=== PATIENT | male | born 1990 | race Caucasian/White ===

== ENCOUNTER 2016-05-14 | Emergency (ER) | payer OTHER ==
--- NOTE | 2016-05-14 16:23 | ED ---
ENT HPI - General Chief complaint: Dental/Oral Stated complaint: Dental Time Seen by Provider: 05/14/16 16:12 Source: patient, RN notes reviewed Mode of arrival: ambulatory Limitations: no limitations - History of Present Illness Initial comments: [age] male presents emergency Department chief complaint of right-sided dental pain. Patient states he's had about a week or so. Patient states anyincreased swelling over last night so he thought that he should be seen. Patient denies any fever chills. Patient has no significant drainage from the area. Patient denies any cough cold runny nose. Patient states he does not normally see a dentist. Patient states that he was concerned due to his symptoms without that he should be seen.Patient denies any recent fever, chills, shortness of breath, chest pain, back pain, abdominal pain, nausea vomiting, numbness or tingling, dysuria or hematuria, constipation or diarrhea, headaches or visual changes, or any other current symptoms. - Related Data Previous Rx's Medication Instructions Recorded Ibuprofen [Motrin] 600 mg PO Q6HR PRN #20 tab 05/14/16 Penicillin V Potassium [Pen Vee K] 500 mg PO TID #40 tab 05/14/16 Allergies Allergy/AdvReac Type Severity Reaction Status Date / Time No Known Allergies Allergy Verified 05/14/16 16:09 Review of Systems ROS Statement: Those systems with pertinent positive or pertinent negative responses have been documented in the HPI. ROS Other: All systems not noted in ROS Statement are negative. Past Medical History Past Medical History: No Reported History Additional Past Medical History / Comment(s): glaucoma History of Any Multi-Drug Resistant Organisms: None Reported Past Surgical History: Orthopedic Surgery Past Psychological History: No Psychological Hx Reported Smoking Status: Current every day smoker Past Alcohol Use History: Occasional Past Drug Use History: Marijuana General Exam Limitations: no limitations General appearance: alert, in no apparent distress Eye exam: Present: normal appearance, PERRL, EOMI. Absent: scleral icterus, conjunctival injection, periorbital swelling Expanded Mouth exam: Present: normal external inspection Teeth exam: Present: dental caries (Diffuse), dental tenderness # (30), gingival enlargement (With draining abscess above tooth #3) Throat exam: normal inspection, tonsillar erythema Neck exam: Present: normal inspection. Absent: tenderness, meningismus, lymphadenopathy Respiratory exam: Present: normal lung sounds bilaterally. Absent: respiratory distress, wheezes, rales, rhonchi, stridor Cardiovascular Exam: Present: regular rate, normal rhythm, normal heart sounds. Absent: systolic murmur, diastolic murmur, rubs, gallop, clicks Neurological exam: Present: alert, oriented X3, CN II-XII intact. Absent: motor sensory deficit Psychiatric exam: Present: normal affect, normal mood Skin exam: Present: warm, dry, intact, normal color. Absent: rash Course Vital Signs 05/14/16 16:05 Temperature 98.2 F Pulse Rate 79 Respiratory 18 Rate Blood Pressure 116/79 O2 Sat by Pulse 97 Oximetry Medical Decision Making - Medical Decision Making 26-year-old male presents emergency department with a chief complaint of what appears to be a dental abscess. This time it is actively draining. We discussed with certain pain medication and antibiotics. We discussed return parameters and follow-up. We discussed the importance to see the dentist. Patient stated he understood all questions have been answered. Patient will be discharged home. Disposition Clinical Impression: Dental abscess Disposition: HOME SELF-CARE Condition: Stable Instructions: Dental Abscess (ED) Additional Instructions: Please use medication as discussed. Please follow up with family doctor if symptoms have not improved over the next two days. Please return to the emergency room if your symptoms increase or worsen or for any other concerns. [facility] [id number] [place] [address] [phone] (existing clients only) For new clients: [phone] 1st consult: $50 (includes Xrays) Usually 30% less then private dentist for visits after. [employer] Have to pay $50 for Xrays anmd rest is covered. [phone] Prescriptions: Ibuprofen [Motrin] 600 mg PO Q6HR PRN #20 tab PRN Reason: Pain Penicillin V Potassium [Pen Vee K] 500 mg PO TID #40 tab Referrals: None,Stated [Primary Care Provider] - 1-2 days Derrick Jesus MD [STAFF PHYSICIAN] - 1-2 days Time of Disposition: 16:22
== END 2016-05-14 16:29 | disposition home or self-care (01) ==
CPT/HCPCS: 99282

== ENCOUNTER 2017-09-30 17:09 | Emergency (ER) | payer OTHER ==
[2017-09-30 17:43] VITALS: BP 128/72; PULSE 87; RESP 16; TEMP 98.4
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
[2017-09-30 18:11] LABS: Glucose,Whole Blood 121 mg/dL (75-99)
[2017-09-30 18:24] LABS: Basophils % (A) 0 %; Eosinophils # (A) 0.2 k/uL (0-0.7); Eosinophils % (A) 3 %; HCT 40.3 % (39.0-53.0); HGB 13.7 gm/dL (13.0-17.5); Lymphocytes # (A) 2.4 k/uL (1.0-4.8); Lymphocytes % (A) 30 %; MCH 27.4 pg (25.0-35.0); MCV 80.7 fL (80.0-100.0); Mean Platelet Volume 6.7; Monocytes # (A) 0.4 k/uL (0-1.0); Monocytes % (A) 6 %; Neutrophils # (A) 4.6 k/uL (1.3-7.7); Neutrophils % (A) 58 %; Platelet Count 226 k/uL (150-450); RBC 4.99 m/uL (4.30-5.90); RDW 13.6 % (11.5-15.5); WBC 7.9 k/uL (3.8-10.6)
[2017-09-30 18:32] LABS: INR 1.1 (<1.2); Prothrombin Time 10.5 sec (9.0-12.0)
[2017-09-30 18:37] LABS: ALT 49 U/L (21-72); AST 25 U/L (17-59); Albumin 4.3 g/dL (3.5-5.0); Alcohol <10 mg/dL; Alkaline Phosphatase 50 U/L (38-126); Amylase 40 U/L (30-110); Anion Gap 14 mmol/L; Blood Urea Nitrogen 14 mg/dL (9-20); Calcium 8.9 mg/dL (8.4-10.2); Carbon Dioxide 26 mmol/L (22-30); Chloride 103 mmol/L (98-107); Glucose 124 mg/dL (74-99); Lipase 10 U/L (23-300); Potassium 3.4 mmol/L (3.5-5.1); Sodium 143 mmol/L (137-145); Total Bilirubin 0.8 mg/dL (0.2-1.3); Total Protein 6.5 g/dL (6.3-8.2)
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
[2017-09-30 18:50] LABS: Creatine Kinase 86 U/L (55-170)
[2017-09-30 19:04] LABS: Creatine Kinase MB 0.7 ng/mL (0.0-2.4); Troponin I <0.012 ng/mL (0.000-0.034)
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
== END 2017-09-30 19:47 | disposition home or self-care (01) ==
LOC: EC 17:09
DX: S46.912A Strain of unspecified muscle, fascia and tendon at shoulder and upper arm level, left arm, initial encounter (principal); S60.311A Abrasion of right thumb, initial encounter; S60.415A Abrasion of left ring finger, initial encounter; S50.312A Abrasion of left elbow, initial encounter; S70.212A Abrasion, left hip, initial encounter; S80.812A Abrasion, left lower leg, initial encounter; R51 Headache; M54.2 Cervicalgia; F17.200 Nicotine dependence, unspecified, uncomplicated; V28.4XXA Motorcycle driver injured in noncollision transport accident in traffic accident, initial encounter; Y92.410 Unspecified street and highway as the place of occurrence of the external cause
CPT/HCPCS: 36415; 70450; 71045; 72125; 72170; 80053; 80320; 82150; 82550; 82553; 83605; 83690; 84484; 85025; 85610; 85730; 86850; 86900; 86901; 93005; 99284

== ENCOUNTER 2020-01-23 19:23 | Emergency (ER) | payer OTHER ==
[2020-01-23 19:44] VITALS: BP 127/86; PULSE 89; RESP 18; TEMP 98
--- NOTE | 2020-01-23 20:34 | XR ---
EXAMINATION TYPE: XR KUB DATE OF EXAM: 01/23/2020 COMPARISON: NONE HISTORY: Nausea and vomiting TECHNIQUE: 2 views upright FINDINGS: There is no sign of intestinal obstruction or pneumoperitoneum. Fecal pattern is normal. Th ere is no evidence of a mass. Lung bases are clear. There are no pathologic calcifications over the k idneys. IMPRESSION: Nonacute abdomen.
--- NOTE | 2020-01-23 20:36 | XR ---
EXAMINATION TYPE: XR chest 2V DATE OF EXAM: 01/23/2020 COMPARISON: 09/30/2017 HISTORY: Cough TECHNIQUE: 2 views FINDINGS: Heart and mediastinum are normal. Lungs are clear. Diaphragm is normal. Bony thorax appears normal. IMPRESSION: Multiple chest.
[2020-01-23 20:58] LABS: Basophils # (A) 0.1 k/uL (0-0.2); Basophils % (A) 1 %; Eosinophils # (A) 0.2 k/uL (0-0.7); Eosinophils % (A) 2 %; HCT 46.4 % (39.0-53.0); HGB 14.6 gm/dL (13.0-17.5); Lymphocytes # (A) 2.8 k/uL (1.0-4.8); Lymphocytes % (A) 30 %; MCH 26.3 pg (25.0-35.0); MCHC 31.5 g/dL (31.0-37.0); MCV 83.3 fL (80.0-100.0); Mean Platelet Volume 6.4; Monocytes # (A) 0.5 k/uL (0-1.0); Monocytes % (A) 5 %; Neutrophils # (A) 5.6 k/uL (1.3-7.7); Neutrophils % (A) 61 %; Platelet Count 230 k/uL (150-450); RBC 5.57 m/uL (4.30-5.90); RDW 13.2 % (11.5-15.5); WBC 9.3 k/uL (3.8-10.6)
[2020-01-23 21:06] LABS: ALT 87 U/L (4-49); AST 44 U/L (17-59); African American GFR (CKD) >90 (>60 ml/min/1.73 sqM); Albumin 4.6 g/dL (3.5-5.0); Alkaline Phosphatase 58 U/L (38-126); Anion Gap 5 mmol/L; Blood Urea Nitrogen 12 mg/dL (9-20); Calcium 9.4 mg/dL (8.4-10.2); Carbon Dioxide 31 mmol/L (22-30); Chloride 102 mmol/L (98-107); Glucose 67 mg/dL (74-99); Magnesium 2.3 mg/dL (1.6-2.3); Non-African American GFR(CKD) >90 (>60 ml/min/1.73 sqM); Potassium 3.7 mmol/L (3.5-5.1); Sodium 138 mmol/L (137-145); Total Bilirubin 0.7 mg/dL (0.2-1.3); Total Protein 7.4 g/dL (6.3-8.2)
--- NOTE | 2020-01-23 21:26 | ED ---
General Adult HPI - General Chief complaint: Recheck/Abnormal Lab/Rx Stated complaint: Nausea,SOB Time Seen by Provider: 01/23/20 19:52 Source: patient, RN notes reviewed, old records reviewed Mode of arrival: ambulatory Limitations: no limitations - History of Present Illness Initial comments: 29-year-old male patient presents ED for multiple complaints. Patient complains of having rhinitis cough congestion nausea diarrhea waxing and waning headaches. No headache at this time. No red flag symptoms. Patient has a history of glaucoma. Systemic: Pt denies fatigue, fever/chills, rash. Pt denies weakness, night sweats, weight loss. Neuro: Pt denies visual disturbances, syncope or pre-syncope. HEENT: Pt denies ocular discharge or irritation, otalgia, rhinorrhea, pharyngitis or notable lymphadenopathy. Cardiopulmonary: Pt denies chest pain, SOB, heart palpitations, dyspnea on exertion. Abdominal/GI: Pt denies abdominal pain, n/v/d. : Pt denies dysuria, burning w/ urination, frequency/urgency. Denies new onset urinary or bowel incontinence. MSK: Pt denies myalgia, loss of strength or function in extremities. Neuro: Pt denies new onset weakness, paresthesias. - Related Data Previous Rx's Medication Instructions Recorded Ibuprofen 800 mg PO Q6HR PRN #20 tablet 09/30/17 Allergies Allergy/AdvReac Type Severity Reaction Status Date / Time No Known Allergies Allergy Verified 01/23/20 19:44 Review of Systems ROS Statement: Those systems with pertinent positive or pertinent negative responses have been documented in the HPI. ROS Other: All systems not noted in ROS Statement are negative. Past Medical History Past Medical History: No Reported History Additional Past Medical History / Comment(s): glaucoma History of Any Multi-Drug Resistant Organisms: None Reported Past Surgical History: Orthopedic Surgery Past Psychological History: No Psychological Hx Reported Smoking Status: Current every day smoker Past Alcohol Use History: Occasional Past Drug Use History: Marijuana General Exam - General Exam Comments Initial Comments: Constitutional: NAD, AOX3, Pt has pleasant affect. HEENT: NC/AT, trachea midline, neck supple, no lymphadenopathy. External ears appear normal, without discharge. Mucous membranes moist. Eyes PERRLA, EOM intact. There is no scleral icterus. No pallor noted. Intraocular pressure average of 18 bilaterally. Cardiopulmonary: RRR, no murmurs, rubs or gallops, no JVD noted. Lungs CTAB in anterior and posterior sawant. No peripheral edema. Abdominal exam: Abdomen soft and non-distended. Abdomen non-tender to palpation in all 4 quadrants. Bowel sounds active in LLQ. No hepatosplenomegaly. No ecchymosis Neuro: CN II-XII intact. No nuchal rigidity. No raccon eyes, no guerra sign, no hemotympanum. No cervical spinal tenderness. MSK: No posterior calf tenderness bilaterally. Posterior tibialis and radial pulse +2 bilaterally. Sensation intact in upper and lower extremities. Full active ROM in upper and lower extremities, 5/5 stregnth. Limitations: no limitations Course Vital Signs 01/23/20 19:42 Temperature 98.0 F Pulse Rate 89 Respiratory 18 Rate Blood Pressure 127/86 O2 Sat by Pulse 100 Oximetry Medical Decision Making - Medical Decision Making 29-year-old male patient to ED for multiple complaints. Physical exam did not display acute pathology. EKG is nonischemic. Chest x-ray negative for any pneumonia or any other acute process. Chest x-rays displayed nonacute abdomen. She was tested for Covid. CBC was non-impressive. Patient declined CT scan. After that the patient requested immediate discharge. Discussed with Patient that I do not have all tests back and explained the risks in which case and including . He verbalized understanding wishes to go says he'll follow-up with his primary care provider and return if any worsening symptoms. Case discussed with Dr. Herrera. - Lab Data Result diagrams: 01/23/20 20:48 01/23/20 20:48 Lab Results 01/23/20 01/23/20 Range/Units 20:48 20:48 WBC 9.3 (3.8-10.6) k/uL RBC 5.57 (4.30-5.90) m/uL Hgb 14.6 (13.0-17.5) gm/dL Hct 46.4 (39.0-53.0) % MCV 83.3 (80.0-100.0) fL MCH 26.3 (25.0-35.0) pg MCHC 31.5 (31.0-37.0) g/dL RDW 13.2 (11.5-15.5) % Plt Count 230 (150-450) k/uL Neutrophils % 61 % Lymphocytes % 30 % Monocytes % 5 % Eosinophils % 2 % Basophils % 1 % Neutrophils # 5.6 (1.3-7.7) k/uL Lymphocytes # 2.8 (1.0-4.8) k/uL Monocytes # 0.5 (0-1.0) k/uL Eosinophils # 0.2 (0-0.7) k/uL Basophils # 0.1 (0-0.2) k/uL Sodium 138 (137-145) mmol/L Potassium 3.7 (3.5-5.1) mmol/L Chloride 102 (98-107) mmol/L Carbon Dioxide 31 H (22-30) mmol/L Anion Gap 5 mmol/L BUN 12 (9-20) mg/dL Creatinine 0.82 (0.66-1.25) mg/dL Est GFR (CKD-EPI)AfAm >90 (>60 ml/min/1.73 sqM) Est GFR (CKD-EPI)NonAf >90 (>60 ml/min/1.73 sqM) Glucose 67 L (74-99) mg/dL Calcium 9.4 (8.4-10.2) mg/dL Magnesium 2.3 (1.6-2.3) mg/dL Total Bilirubin 0.7 (0.2-1.3) mg/dL AST 44 (17-59) U/L ALT 87 H (4-49) U/L Alkaline Phosphatase 58 (38-126) U/L Total Protein 7.4 (6.3-8.2) g/dL Albumin 4.6 (3.5-5.0) g/dL - EKG Data -: EKG Interpreted by Me (and Dr. Herrera ) EKG Comments: ventricular rate 86,. Full 136, QRS 80, QT/QTC 350/418. Normal sinus rhythm, normal EKG, no concern for acute ischemia. Disposition Clinical Impression: Cough Disposition: Left Against Medical Advice Condition: Undetermined Is patient prescribed a controlled substance at d/c from ED?: No Referrals: None,Stated [Primary Care Provider] - 1-2 days
== END 2020-01-23 21:15 | disposition left against medical advice (07) ==
LOC: EC 19:23
DX: R05 Cough (principal); J31.0 Chronic rhinitis; R11.0 Nausea; R19.7 Diarrhea, unspecified; R51 Headache; R09.89 Other specified symptoms and signs involving the circulatory and respiratory systems; H40.9 Unspecified glaucoma; F17.200 Nicotine dependence, unspecified, uncomplicated; Z20.828 Contact with and (suspected) exposure to other viral communicable diseases
CPT/HCPCS: 36415; 93005; 80053; 83735; 85025; 71046; 74018; 99285; U0003

== ENCOUNTER → 2020-01-31 | Outpatient (CLI) | payer OTHER ==
[2020-01-31 15:35] LABS: Amorphous Sediment,Urine Rare /hpf; Appearance,Urine Cloudy (Clear); Bilirubin,Urine Negative (Negative); Blood,Urine Negative (Negative); Color,Urine Yellow; Glucose,Urine (UA) Negative (Negative); Ketones,Urine Negative (Negative); Leukocyte Esterase,Urine Negative (Negative); Mucus,Urine Rare /hpf; Nitrite,Urine Negative (Negative); PH, Urine 7.5 (5.0-8.0); Protein,Urine Trace (Negative); Specific Gravity,Urine 1.021 (1.001-1.035); Urobilinogen,Urine <2.0 mg/dL (<2.0); WBC,Urine 1 /hpf (0-5)
[2020-02-01 05:04] LABS: Hepatitis B Surface Antigen Non-Reactive (Non-Reactive); Hepatitis C IgG Antibody Reactive (Non-Reactive)
[2020-02-01 07:19] LABS: HIV 2 AB Non-Reactive (Non-Reactive); HIV AB P24 Non-Reactive (Non-Reactive); HIV P24 AG Non-Reactive (Non-Reactive)
[2020-02-01 15:33] LABS: C. trachomatis,PCR Negative (Neg,Equiv); Chlamydia trachomatis Source Urine; N. gonorrhoeae,PCR Negative (Neg,Equiv); Neisseria Source Urine
== END | disposition home or self-care (01) ==
LOC: LABWHC1 14:24
PROVIDERS: ATTEND Family Medicine
DX: Z11.3 Encounter for screening for infections with a predominantly sexual mode of transmission (principal); R42 Dizziness and giddiness
CPT/HCPCS: 36415; 81001; 84443; 86780; 86803; 87340; 87390; 87491; 87591

== ENCOUNTER 2021-01-31 13:59 | Emergency (ER) | payer OTHER ==
[2021-01-31 14:21] VITALS: BP 111/64; PULSE 106; RESP 18; TEMP 97.6
[2021-01-31] MEDS ORDERED: SULFAMETHOX-TMP 800-160MG 1 EACH TAB PO STA (14:51)
--- NOTE | 2021-01-31 15:31 | ED ---
Recheck HPI - General Chief Complaint: Recheck/Abnormal Lab/Rx Stated Complaint: Assisted clearance Time Seen by Provider: 01/31/21 14:32 Source: patient, police, RN notes reviewed Mode of arrival: wheelchair Limitations: no limitations - History of Present Illness Initial Comments: Patient is a 30-year-old male presenting to the emergency department in police custody for retirement clearance. According to police officers, patient was arrested and then quickly started coming up with multiple complaints and brought him to the ER for evaluation. Patient is complaining of feeling anxious, he "thinks he had a heart attack and stroke last week." He stating this because he has been under a lot of stress and felt a lot of anxiety. He denies any chest pain or shortness of breath today, no fevers or chills. Patient recently was bitten by a dog about 3-4 days ago and his right ear. He did not seek treatment for this. He states he believes his tetanus vaccine is up-to-date, he is refusing an updated one today. Having increasing pain in his right ear ever since then. He denies any lightheadedness or dizziness. He is complaining of feeling really dehydrated, he states he has not drank any water today. Patient denies any other further complaints. Denies any chest pain or shortness of breath, no fevers or chills, no abdominal pain. He denies any suicidal or homicidal thoughts. Has no further complaints. Upon arrival to the ER his vitals are stable. - Related Data Previous Rx's Medication Instructions Recorded Ibuprofen 800 mg PO Q6HR PRN #20 tablet 09/30/17 Sulfamethox-Tmp 800-160Mg [Bactrim 1 each PO Q12HR #20 tab 01/31/21 Ds] Allergies Allergy/AdvReac Type Severity Reaction Status Date / Time No Known Allergies Allergy Verified 01/31/21 14:16 Review of Systems ROS Statement: Those systems with pertinent positive or pertinent negative responses have been documented in the HPI. ROS Other: All systems not noted in ROS Statement are negative. Past Medical History Past Medical History: No Reported History Additional Past Medical History / Comment(s): glaucoma History of Any Multi-Drug Resistant Organisms: None Reported Past Surgical History: Orthopedic Surgery Past Psychological History: No Psychological Hx Reported Smoking Status: Current every day smoker Past Alcohol Use History: Occasional Past Drug Use History: Marijuana General Exam - General Exam Comments Initial Comments: GENERAL: Patient is nontoxic and in no acute distress, appears anxious HEAD: Atraumatic, normocephalic. EYES: Pupils equal round and reactive to light, extraocular movements intact, sclera anicteric, conjunctiva are normal. Eyelids were unremarkable. ENT: Nares patent, oropharynx clear without exudates. Moist mucous membranes. NECK: Normal range of motion, supple without lymphadenopathy or JVD. LUNGS: Unlabored respirations. Breath sounds clear to auscultation bilaterally and equal. No wheezes rales or rhonchi. HEART: Regular rate and rhythm without murmurs, rubs or gallops. ABDOMEN: Soft, nontender, normoactive bowel sounds. No guarding, no rebound. No masses appreciated. : Deferred MUSCULOSKELETAL: Normal extremities with adequate strength and normal range of motion, no pitting or edema. No clubbing or cyanosis. NEUROLOGICAL: Patient is alert and oriented x 3. Motor and sensory are also intact. Cranial nerves II through XII grossly intact. Symmetrical smile. Normal speech, normal gait. PSYCH: Patient appears anxious. SKIN: Warm, Dry, normal turgor, no rashes or lesions noted. Limitations: no limitations Course Vital Signs 01/31/21 14:17 Temperature 97.6 F Pulse Rate 106 H Respiratory 18 Rate Blood Pressure 111/64 O2 Sat by Pulse 97 Oximetry Medical Decision Making - Medical Decision Making Patient is a 30-year-old male presenting in police custody for retirement clearance. According to officers, sent is a rusted him he started complaining of multiple complaints and they brought him in for evaluation. I did do an EKG, showing normal sinus rhythm, no signs of acute ST segment elevation. Patient was given water and I started treatment for a dog bite to his right ear with bactrim. He did not receive treatment for this ear and is refusing a tetanus shot today, he believes his tetanus is up-to-date. I cannot repair his ear secondary to how long the injury is been. I recommended continuing with antibiotics. He is stable for discharge. Patient will be discharged back to the police custody. Case discussed with Dr. Stapleton. - EKG Data EKG Comments: Normal sinus rhythm, rightward axis, no signs of acute ST segment elevation. Ventricular rate 78, DC interval 136, QT 378. Disposition Clinical Impression: Anxiety, Dog bite of right ear Disposition: HOME SELF-CARE Condition: Stable Instructions (If sedation given, give patient instructions): Cellulitis (ED) Additional Instructions: Please return to the Emergency Department if symptoms worsen or any other concerns. Please take antibiotics as prescribed. Prescriptions: Sulfamethox-Tmp 800-160Mg [Bactrim Ds] 1 each PO Q12HR #20 tab Is patient prescribed a controlled substance at d/c from ED?: No Referrals: None,Stated [Primary Care Provider] - 1-2 days Time of Disposition: 15:31
== END 2021-01-31 15:44 | disposition home or self-care (01) ==
LOC: EC 13:59
DX: S01.351A Open bite of right ear, initial encounter (principal); F41.9 Anxiety disorder, unspecified; F17.200 Nicotine dependence, unspecified, uncomplicated; F12.90 Cannabis use, unspecified, uncomplicated; W54.0XXA Bitten by dog, initial encounter
CPT/HCPCS: 93005; 99283

== ENCOUNTER 2022-05-10 13:15 | Emergency (ER) | payer OTHER ==
[2022-05-10] MEDS ORDERED: SODIUM CHLORIDE 0.9% 1,000 ML IV STA (13:34)
[2022-05-10] MEDS ORDERED: LORazepam 2 MG/ML INJ IV STA (13:36)
--- NOTE | 2022-05-10 13:38 | ED ---
General Adult HPI - General Chief complaint: Syncope Stated complaint: near syncope Time Seen by Provider: 05/10/22 13:18 Source: patient, EMS, RN notes reviewed Mode of arrival: EMS Limitations: no limitations - History of Present Illness Initial comments: Patient was a pleasant 32-year-old male presenting to the emergency department with concerns for shaking and near syncope. Patient has a previous history of syncope and a previous history of seizure once. Patient recently stopped using methamphetamine, 4 days ago. Patient felt worse today. Patient felt lightheaded and shaky and was concerned he would pass out. Patient did not pass out. Patient states he is starting to feel a little bit better now. Patient admits to not eating and drinking as much recently and does feel a little bit dehydrated. - Related Data Home Medications Medication Instructions Recorded Confirmed No Known Home Medications 05/10/22 05/10/22 Allergies Allergy/AdvReac Type Severity Reaction Status Date / Time No Known Allergies Allergy Verified 05/10/22 14:46 Review of Systems ROS Statement: Those systems with pertinent positive or pertinent negative responses have been documented in the HPI. ROS Other: All systems not noted in ROS Statement are negative. Constitutional: Denies: fever Eyes: Denies: eye pain ENT: Denies: ear pain Respiratory: Denies: cough Cardiovascular: Denies: chest pain Endocrine: Denies: fatigue Gastrointestinal: Reports: nausea Genitourinary: Denies: dysuria Musculoskeletal: Denies: back pain Skin: Denies: rash Neurological: Reports: paresthesias (Tingling of both his feet and hands). Denies: weakness Past Medical History Past Medical History: No Reported History Additional Past Medical History / Comment(s): glaucoma History of Any Multi-Drug Resistant Organisms: None Reported Past Surgical History: Orthopedic Surgery Past Psychological History: No Psychological Hx Reported Smoking Status: Current every day smoker Past Alcohol Use History: Occasional Past Drug Use History: Marijuana General Exam Limitations: no limitations General appearance: alert, in no apparent distress Head exam: Present: atraumatic, normocephalic Eye exam: Present: normal appearance, PERRL, EOMI ENT exam: Present: normal oropharynx, other (Poor dentition) Neck exam: Present: normal inspection. Absent: tenderness, meningismus Respiratory exam: Present: normal lung sounds bilaterally Cardiovascular Exam: Present: regular rate, normal rhythm, normal heart sounds Expanded Peripheral pulses: 2+: Radial (R), Radial (L), Posterior Tibialis (R), Posterior Tibialis (L) GI/Abdominal exam: Present: soft. Absent: tenderness Extremities exam: Present: normal inspection. Absent: pedal edema, calf tenderness Neurological exam: Present: alert, oriented X3, CN II-XII intact. Absent: motor sensory deficit Expanded Neurological exam: Present: protecting the airway Speech: Present: fluid speech Motor strength exam: RUE: 5, LUE: 5, RLE: 5, LLE: 5 Eye Response: (4) open spontaneously Motor Response: (6) obeys commands Verbal Response: (5) oriented Psychiatric exam: Present: normal affect, normal mood Skin exam: Present: normal color Course Vital Signs 05/10/22 13:43 Temperature 98.5 F Pulse Rate 70 Respiratory 18 Rate Blood Pressure 108/73 O2 Sat by Pulse 100 Oximetry EKG Findings - EKG Results: EKG: interpreted by ERMD, sinus rhythm, normal axis, normal QRS, normal ST/T Medical Decision Making - Medical Decision Making Patient reevaluated and feeling much better. Patient and family updated on results Was pt. sent in by a medical professional or institution (Dr. PA, METAL FINISHER, urgent care, hospital, or shelter...) When possible be specific @ -No Did you speak to anyone other than the patient for history (EMS, parent, family, police, friend...)? What history was obtained from this source @ -Additional history taken from EMS including the patient last used methamphetamine 4 days ago Did you review nursing and triage notes (agree or disagree)? Why? @ -I reviewed and agree with nursing and triage notes Were old charts reviewed (outside hosp., previous admission, EMS record, old EKG, old radiological studies, urgent care reports/EKG's, shelter records)? Report findings @ -No old charts were reviewed Differential Diagnosis (chest pain, altered mental status, abdominal pain women, abdominal pain men, vaginal bleeding, weakness, fever, dyspnea, syncope, headache, dizziness, GI bleed, back pain, seizure, CVA, palpatations, mental health)? @ -Differential Weakness: Hypoglycemia, shock, sepsis, hyponatremia, anemia, infection, GA, ETOH, adverse medicine reaction, overdose, stroke, this is not meant to be an all-inclusive list.Differential Syncope: Valvular disease, hypertrophic cardiomyopathy, pulmonary embolism, tamponade, tachycardia, bradycardia, GA, hypovolemia, hemorrhage, dissection, anemia, intracranial hemorrhage, seizure, hypoglycemia, carbon monoxide poisoning, this is not meant to be an all-inclusive list. EKG interpreted by me (3pts min.). @ -As above X-rays interpreted by me (1pt min.). @ -None done CT interpreted by me (1pt min.). @ -None done U/S interpreted by me (1pt. min.). @ -None done What testing was considered but not performed or refused? (CT, X-rays, U/S, labs)? Why? @ -None What meds were considered but not given or refused? Why? @ -None Did you discuss the management of the patient with other professionals (professionals i.e. , PA, METAL FINISHER, lab, RT, psych nurse, licensed clinical social worker, marketing programs specialist, teacher, registration officer, case checker)? Give summary @ -No Was smoking cessation discussed for >3mins.? @ -No Was critical care preformed (if so, how long)? @ -No Were there social determinants of health that impacted care today? How? (Homelessness, low income, unemployed, alcoholism, drug addiction, transportation, low edu. Level, literacy, decrease access to med. care, halfway, rehab)? @ -No Was there de-escalation of care discussed even if they declined (Discuss DNR or withdrawal of care, Hospice)? DNR status @ -No What co-morbidities impacted this encounter? (DM, HTN, Smoking, COPD, CAD, Cancer, CVA, ARF, Chemo, Hep., AIDS, mental health diagnosis, sleep apnea, morbid obesity)? @ -None Was patient admitted / discharged? Hospital course, mention meds given and route, prescriptions, significant lab abnormalities, going to OR and other pertinent info. @ -Discharged Undiagnosed new problem with uncertain prognosis? @ -No Drug Therapy requiring intensive monitoring for toxicity (Heparin, Nitro, I nsulin, Cardizem)? @ -No Were any procedures done? @ -No Diagnosis/symptom? @ -Near-syncope Acute, or Chronic, or Acute on Chronic? @ -Acute Uncomplicated (without systemic symptoms) or Complicated (systemic symptoms)? @ -default Side effects of treatment? @ -No Exacerbation, Progression, or Severe Exacerbation? @ -No Poses a threat to life or bodily function? How? (Chest pain, USA, [place], pneumonia, PE, COPD, DKA, ARF, appy, cholecystitis, CVA, Diverticulitis, Homicidal, Suicidal, threat to staff... and all critical care pts) @ -No - Lab Data Result diagrams: 05/10/22 13:30 05/10/22 13:30 Lab Results 05/10/22 05/10/22 05/10/22 Range/Units 13:30 13:30 13:30 WBC 8.9 (3.8-10.6) k/uL RBC 5.72 (4.30-5.90) m/uL Hgb 16.0 (13.0-17.5) gm/dL Hct 48.1 (39.0-53.0) % MCV 84.1 (80.0-100.0) fL MCH 28.0 (25.0-35.0) pg MCHC 33.3 (31.0-37.0) g/dL RDW 13.3 (11.5-15.5) % Plt Count 252 (150-450) k/uL MPV 7.3 Neutrophils % 67 % Lymphocytes % 23 % Monocytes % 5 % Eosinophils % 3 % Basophils % 1 % Neutrophils # 6.0 (1.3-7.7) k/uL Lymphocytes # 2.0 (1.0-4.8) k/uL Monocytes # 0.4 (0-1.0) k/uL Eosinophils # 0.2 (0-0.7) k/uL Basophils # 0.1 (0-0.2) k/uL Sodium 135 L (137-145) mmol/L Potassium 4.6 (3.5-5.1) mmol/L Chloride 103 (98-107) mmol/L Carbon Dioxide 23 (22-30) mmol/L Anion Gap 9 mmol/L BUN 13 (9-20) mg/dL Creatinine 0.83 (0.66-1.25) mg/dL Est GFR (CKD-EPI)AfAm >90 (>60 ml/min/1.73 sqM) Est GFR (CKD-EPI)NonAf >90 (>60 ml/min/1.73 sqM) Glucose 174 H (74-99) mg/dL Plasma Lactic Acid Kerwin 1.3 (0.7-2.0) mmol/L Calcium 8.3 L (8.4-10.2) mg/dL Magnesium 1.9 (1.6-2.3) mg/dL Total Bilirubin 0.8 (0.2-1.3) mg/dL AST 38 (17-59) U/L ALT 41 (4-49) U/L Alkaline Phosphatase 57 (38-126) U/L Total Protein 7.1 (6.3-8.2) g/dL Albumin 4.3 (3.5-5.0) g/dL Disposition Clinical Impression: Near syncope Disposition: HOME SELF-CARE Condition: Stable Instructions (If sedation given, give patient instructions): Near Syncope (ED) Additional Instructions: Please do follow-up with primary care physician in the next couple days for recheck. Return for weakness, passing out, confusion, worsening or changing symptoms or other concerns. Is patient prescribed a controlled substance at d/c from ED?: No Referrals: Roshan Choudhary MD [REFERRING] - 1-2 days Time of Disposition: 15:02
[2022-05-10 13:59] VITALS: PULSE 70; RESP 18; TEMP 98.5
[2022-05-10 14:07] LABS: Basophils # (A) 0.1 k/uL (0-0.2); Basophils % (A) 1 %; Eosinophils # (A) 0.2 k/uL (0-0.7); Eosinophils % (A) 3 %; HCT 48.1 % (39.0-53.0); Lymphocytes % (A) 23 %; MCHC 33.3 g/dL (31.0-37.0); MCV 84.1 fL (80.0-100.0); Mean Platelet Volume 7.3; Monocytes # (A) 0.4 k/uL (0-1.0); Monocytes % (A) 5 %; Neutrophils % (A) 67 %; Platelet Count 252 k/uL (150-450); RBC 5.72 m/uL (4.30-5.90); RDW 13.3 % (11.5-15.5); WBC 8.9 k/uL (3.8-10.6)
[2022-05-10 14:26] LABS: ALT 41 U/L (4-49); African American GFR (CKD) >90 (>60 ml/min/1.73 sqM); Albumin 4.3 g/dL (3.5-5.0); Anion Gap 9 mmol/L; Blood Urea Nitrogen 13 mg/dL (9-20); Calcium 8.3 mg/dL (8.4-10.2); Carbon Dioxide 23 mmol/L (22-30); Chloride 103 mmol/L (98-107); Glucose 174 mg/dL (74-99); Non-African American GFR(CKD) >90 (>60 ml/min/1.73 sqM); Sodium 135 mmol/L (137-145); Total Bilirubin 0.8 mg/dL (0.2-1.3); Total Protein 7.1 g/dL (6.3-8.2)
[2022-05-10 14:27] LABS: Potassium 4.6 mmol/L (3.5-5.1)
[2022-05-10 14:28] LABS: AST 38 U/L (17-59); Alkaline Phosphatase 57 U/L (38-126); Magnesium 1.9 mg/dL (1.6-2.3)
[2022-05-10 15:04] VITALS: BP 110/70
== END 2022-05-10 15:11 | disposition home or self-care (01) ==
LOC: EC 13:15
DX: R55 Syncope and collapse (principal); F17.200 Nicotine dependence, unspecified, uncomplicated; F12.90 Cannabis use, unspecified, uncomplicated
CPT/HCPCS: 36415; 93005; 80053; 83605; 83735; 85025; 99284; 96374; 96361; J2060

== ENCOUNTER 2022-10-18 22:52 | Inpatient (IN) | payer MEDICAID, OTHER ==
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
[2022-10-19 03:31] LABS: Amphetamine Screen,Urine Not Detected (NotDetected); Barbiturate Screen,Urine Not Detected (NotDetected); Benzodiazepines Screen,Urine Not Detected (NotDetected); Cocaine Screen,Urine Not Detected (NotDetected); Methadone Screen, Urine Not Detected (NotDetected); Opiate Screen,Urine Not Detected (NotDetected); Oxycodone Screen, Urine Not Detected (NotDetected); Phencyclidine Screen,Urine Not Detected (NotDetected); Tricyclic Antidepressant,Urine Not Detected (NotDetected); Urn Cannabinoid Scrn Detected (NotDetected)
[2022-10-19] MEDS ORDERED: diphenhydrAMINE 50 MG/ML 1 ML VIAL IM STA (04:20)
[2022-10-19] MEDS ORDERED: HALOPERIDOL LACTATE 5 MG/ML 1 ML VIAL IM STA (04:20)
[2022-10-19] MEDS ORDERED: LORazepam 2 MG/ML INJ IM STA (04:20)
[2022-10-19] MEDS ORDERED: MAG HYDROX/AL HYDROX/SIMETH 30 ML CUP PO PRN (06:40)
[2022-10-19] MEDS ORDERED: MAGNESIUM HYDROXIDE 2,400 MG/30 ML CUP PO PRN (06:40)
[2022-10-19] MEDS ORDERED: ACETAMINOPHEN TAB 325 MG TAB PO PRN (06:40)
[2022-10-19] MEDS ORDERED: LORazepam 1 MG TAB PO PRN (06:42)
[2022-10-19] MEDS ORDERED: LORazepam 2 MG/ML INJ IM PRN (06:42)
[2022-10-19] MEDS ORDERED: OLANZapine 10 MG VIAL IM PRN (06:44)
[2022-10-19] MEDS ORDERED: OLANZapine 5 MG TAB PO PRN (06:44)
[2022-10-19 07:26] LABS: Appearance,Urine Clear (Clear); Bilirubin,Urine Negative (Negative); Blood,Urine Negative (Negative); Color,Urine Light Yellow; Glucose,Urine (UA) Negative (Negative); Ketones,Urine Negative (Negative); Leukocyte Esterase,Urine Negative (Negative); Nitrite,Urine Negative (Negative); PH, Urine 6.5 (5.0-8.0); Protein,Urine Negative (Negative); Specific Gravity,Urine 1.004 (1.001-1.035); Urobilinogen,Urine <2.0 mg/dL (<2.0)
[2022-10-19] MEDS: NICOTINE 14MG/24HR PATCH TRANSDERM SCH (10:15)
[2022-10-19 11:37] LABS: Basophils % (A) 0 %; Eosinophils # (A) 0.1 k/uL (0-0.7); Eosinophils % (A) 1 %; HCT 47.9 % (39.0-53.0); HGB 15.5 gm/dL (13.0-17.5); Lymphocytes # (A) 1.8 k/uL (1.0-4.8); Lymphocytes % (A) 24 %; MCH 27.4 pg (25.0-35.0); MCHC 32.4 g/dL (31.0-37.0); MCV 84.7 fL (80.0-100.0); Mean Platelet Volume 6.8; Monocytes # (A) 0.4 k/uL (0-1.0); Monocytes % (A) 6 %; Neutrophils % (A) 67 %; Platelet Count 243 k/uL (150-450); RBC 5.65 m/uL (4.30-5.90); RDW 13.3 % (11.5-15.5); WBC 7.4 k/uL (3.8-10.6)
[2022-10-19 11:43] LABS: ALT 48 U/L (4-49); AST 35 U/L (17-59); African American GFR (CKD) >90 (>60 ml/min/1.73 sqM); Albumin 4.9 g/dL (3.5-5.0); Alkaline Phosphatase 58 U/L (38-126); Anion Gap 12 mmol/L; Bilirubin, Delta 0.2 mg/dL (0.0-0.2); Bilirubin,Unconjugated 0.5 mg/dL (0.0-1.1); Blood Urea Nitrogen 12 mg/dL (9-20); Calcium 9.6 mg/dL (8.4-10.2); Carbon Dioxide 27 mmol/L (22-30); Chloride 100 mmol/L (98-107); Glucose 88 mg/dL (74-99); Non-African American GFR(CKD) >90 (>60 ml/min/1.73 sqM); Potassium 3.8 mmol/L (3.5-5.1); Sodium 139 mmol/L (137-145); Total Bilirubin 0.7 mg/dL (0.2-1.3); Total Protein 8.2 g/dL (6.3-8.2)
[2022-10-19] MEDS: SERTRALINE 50 MG TAB PO SCH (12:08)
--- NOTE | 2022-10-19 13:48 | P.HP ---
Psychiatric H&P - . H&P Date: 10/19/22 History & Physical: Allergies Allergy/AdvReac Type Severity Reaction Status Date / Time No Known Allergies Allergy Verified 10/19/22 06:46 Vital Signs Temp 97.5 F L 10/19/22 08:56 Pulse 92 10/19/22 08:56 Resp 16 10/19/22 08:56 BP 134/82 10/19/22 08:56 Pulse Ox 98 10/19/22 00:12 FiO2 Intake & Output 10/18/22 10/19/22 10/19/22 18:59 06:59 18:59 Weight 70.307 kg 70.307 kg Laboratory Last Values Urine Color Light Yellow 10/19/22 01:39 Urine Appearance Clear (Clear) 10/19/22 01:39 Urine pH 6.5 (5.0-8.0) 10/19/22 01:39 Ur Specific [place] 1.004 (1.001-1.035) 10/19/22 01:39 Urine Protein Negative (Negative) 10/19/22 01:39 Urine Glucose (UA) Negative (Negative) 10/19/22 01:39 Urine Ketones Negative (Negative) 10/19/22 01:39 Urine Blood Negative (Negative) 10/19/22 01:39 Urine Nitrite Negative (Negative) 10/19/22 01:39 Urine Bilirubin Negative (Negative) 10/19/22 01:39 Urine Urobilinogen <2.0 mg/dL (<2.0) 10/19/22 01:39 Ur Leukocyte Esterase Negative (Negative) 10/19/22 01:39 Urine Opiates Screen Not Detected (NotDetected) 10/19/22 01:39 Ur Oxycodone Screen Not Detected (NotDetected) 10/19/22 01:39 Urine Methadone Screen Not Detected (NotDetected) 10/19/22 01:39 Ur Propoxyphene Screen Not Detected (NotDetected) 10/19/22 01:39 Ur Barbiturates Screen Not Detected (NotDetected) 10/19/22 01:39 U Tricyclic Antidepress Not Detected (NotDetected) 10/19/22 01:39 Ur Phencyclidine Scrn Not Detected (NotDetected) 10/19/22 01:39 Ur Amphetamines Screen Not Detected (NotDetected) 10/19/22 01:39 U Methamphetamines Scrn Not Detected (NotDetected) 10/19/22 01:39 U Benzodiazepines Scrn Not Detected (NotDetected) 10/19/22 01:39 Urine Cocaine Screen Not Detected (NotDetected) 10/19/22 01:39 U Marijuana (THC) Screen Detected (NotDetected) H 10/19/22 01:39 Coronavirus (PCR) Not Detected (Not Detectd) 10/19/22 05:40 10/19/22 09:04 IDENTIFYING DATA: Patient is a single, employed, 32-year-old male who is presenting with paranoia. HPI: Patient presented to the ED with the petition filled by his stating "He took dog leash and stated he was going to commit suicide, delusional thoughts, stating he works for the [employer], threw phone at me, aggressive paranoid, sleeping in attic/closets due to people being after him. Always hearing the phone calls of how he goes crazy and threatens them. He is getting more unstable and a threat to their lives." While in the ED, he was saying that he was "highly intelligent, I'm not like these people, I'm being detained illegally, I know the HIPPA laws, everyone in this town knows me, I don't want you to get fired over this thing." When seen this morning, patient presents as calm and superficially cooperative. He is rather tangential in his thought process and has themes of grandiosity throughout the conversation. He describes having largely grown up by himself and having to provide for himself from a young age. He says that he has been living with his spouse and their 4 children. He reports that any time his spouse or her family has a problem with him, he is kicked out of the home. He states that the paperwork to get him hospitalized was completed by "someone who doesn't even know me ". He also talks about police officers following him around and that he cannot get any doctors to watch over his care. Patient says that he believes this may be because his spouse is somehow manipulating everybody against him. Patient illustrates a pattern of concern that he is the only rational person around him and that all the events happening to him are due to people being against him. He also describes himself as "smarter than most people in the room." He believes that he can understand medical conditions based on looking at his blood work. He repeatedly describes concerns about his health and worrying that he has cancer or liver issues but says that doctors do not seem to be wanting to take care of him. He says he believes this because he cannot seem to gain weight. He says that he has been depressed since being released from longterm in September 2021. He reports poor appetite. He endorses issues with sleep maintenance. He endorses low energy. He denies suicidal and homicidal ideation currently. Patient admits to a history of methamphetamine use. He describes a 15 year history of heavy methamphetamine use. Although he is quite guarded in describing his recent use of this, patient admits to his last use being around 1 month ago. He states that in the past few months, his use has not been regular as it had been in the past. He also describes experimenting with many different drugs. Although he does not admit to cannabis use recently, urine drug screen was positive for cannabis. Patient denies symptoms consistent with jose. He denies auditory and visual hallucinations, as asked and assessed. Patient granted this provider verbal consent to speak with his spouse Claire and his aunt Shadi over the phone. This provider was unable to get in touch with Claire. This provider spoke with Shadi over the phone who provided further history. Shadi states that patient has "scary mood swings "and has often said he "wants to kill himself ". She describes him as someone who is manipulative and thinks he is better than others. She also states that he "rants on tangents ". She says that due to all of these reasons and others, he cannot seem to hold a job for longer than a month. She says that he is noncompliant with medications but that he might say that he will be. She is hopeful that he will be stabilized prior to discharge. PSYCH HX: Patient denies having seen a psychiatrist outside of the one he saw in longterm. He states that he was placed on Zyprexa and another medication which name he may be cannot recall. He reports doing well on the Zyprexa. PMH: Patient reports having been diagnosed with hepatitis C in the past but denies other diagnoses at this current time. SUBSTANCE HX: Alcohol: Occasional Cocaine: Patient was guarded and would not discuss this. He just said "methamphetamine is my drug of choice " Tobacco: 0.5 ppd Cannabis: Started using from when he was 8 years old and denies recent use although UDS was positive for cannabis Xanax: Used long ago Methamphetamine: 15 years IV use. He states that he continues to use intermittently currently. Denies using other substances SOCIAL/LEGAL HX: He states that he was kicked out of his home when he was 14 years old. He says that he largely took care of himself and supported himself since childhood. He reports currently residing with 4 children and spouse of 16 years (Claire). 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 Working at [employer]. Legal problems: Intermediate for 1 year for possession of substances FAM PSYCH HX: Denies awareness of this MENTAL STATUS EXAM: General Appearance: Patient appears to be stated age is alert, directable, and attempts to cooperate superficially. Patient appears to have fair hygiene and grooming. Behavior: Patient is seated without any agitated behavior. Guarded Speech: Patient's speech is fluent and nonpressured. Mood/Affect: Patient reports their mood is "depressed", affect is congruent and constricted. Suicidality/Homicidality: Patient denies having any homicidal ideation intent or plan. Denies any suicidal ideations intent or plan Perceptions: Patient denies any visual hallucinations and denies any auditory hallucinations Though content/process: Grandiosity, paranoia, tangential Memory and concentration: AOX3, grossly intact for the purposes of this session. Can spell "WORLD" backwards Judgment and insight: Poor STRENGTHS/WEAKNESSES: Strength is family support. Weakness is comorbid substance use INTELLECT: average IMPRESSIONS: Schizoaffective disorder, depressive type R/o somatic symptom disorder Likely ASPD PLAN: -Patient is admitted under voluntary status to MHU for stabilization of psychiatric symptoms and safety. Patient signed adult voluntary form and medication consent and is placed in patient's chart. -Medications : Zyprexa 5 mg qHS for psychosis Zoloft 50 mg daily for mood -Zyprexa/Ativan PRN for anxiety/agitation -Patient was counselled on substance abuse and desired to cut back on use. Motivational interviewing. -Patient was informed of the risks, benefits and side effects of the medication and patient verbally consented to taking the medications. Patient signed med consent form and was placed in chart. -Internal Medicine consult to perform medical evaluation and physical. -SW on board for discharge planning. Encourage patient to participate in groups to work on coping skills. 10/19/22 09:08 10/19/22 09:26 10/19/22 13:15
[2022-10-19] MEDS ORDERED: OLANZapine 5 MG TAB PO SCH (21:00)
[2022-10-20 07:55] LABS: Chol/HDL Ratio 2.46 Ratio; LDL Cholesterol,Calculated 80.4 mg/dL (0.0-131.0); VLDL Calculation 12.16 mg/dL (5.00-40.00)
[2022-10-20] MEDS: NICOTINE 14MG/24HR PATCH TRANSDERM SCH (08:15)
[2022-10-20] MEDS: SERTRALINE 50 MG TAB PO SCH (08:15)
--- NOTE | 2022-10-20 15:33 | P.PN ---
Progress Note - Text Progress Note Date: 10/20/22 Interval history: PAtient was seen taking part in group and was agreeable to speak to keno writer/runner in the office. He spoke brielfy about why he is in the hospital, he states that him and his were having problems and an argument at home. HE claims that he wrapped a cord around his neck. regrets it and states that he would never harm himself. claims that his mood and anxiety have been improving. claims hes been going to group, has not been talking to his lately since being in the hospital. He claims his sleep is well, denies any changes in his appetite. and denies any Si or HI at this time. denies any Ah or VH. patient was faiely arguemntative today when he found out he wasnt going to be discharged and noted that he feels his "rights are being severely violated". he also mentioned that he will be asking for the AMA form when he leaves the office. Mental status exam: General Appearance: Patient appears to be stated age is alert, directable, and attempts to cooperate superficially. Patient appears to have fair hygiene and grooming. Behavior: Patient is seated without any agitated behavior. Guarded Speech: Patient's speech is fluent and nonpressured. Mood/Affect: Patient reports their mood is "depressed", affect is congruent and constricted. Suicidality/Homicidality: Patient denies having any homicidal ideation intent or plan. 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 Patient signed adult voluntary form and medication consent and is placed in patient's chart. -Medications : increase Zyprexa 7.5 mg qHS for psychosis, Zoloft 50 mg daily for mood -Zyprexa/Ativan PRN for anxiety/agitation -SW on board for discharge planning. Encourage patient to participate in groups to work on coping skills. possible discharge tomorrow vs thursday. SW to safety plan at home with his .
[2022-10-20] MEDS ORDERED: OLANZapine 7.5 MG TAB PO SCH (21:00)
[2022-10-21 07:15] VITALS: BP 129/69; PULSE 78; RESP 18; TEMP 98.1
[2022-10-21] MEDS: NICOTINE 14MG/24HR PATCH TRANSDERM SCH (08:22)
[2022-10-21] MEDS: SERTRALINE 50 MG TAB PO SCH (08:22)
--- NOTE | 2022-10-21 11:26 | P.PN ---
Progress Note - Text Progress Note Date: 10/21/22 Interval History: Patient was seen attending group and was directable and agreeable to speak with commercial real estate underwriter in the office. The patient is currently not reporting any suicidal or homicidal ideation, intention, and/or plan. He is not reporting any auditory or visual hallucinations. Patient states that he is apologetic for his initial outburst when he first presented to the milieu. He has been sleeping and eating well. He has been participating in groups. 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 However, there is no overt delusional undertones involved. The patient vehemently denies any desire to hurt anyone. He does express a desire for discharge. He does acknowledge a history of substance abuse however he vehemently denies any recent use. Mental Status Exam: General Appearance: Patient appears to be stated age is alert, directable, and cooperative. Patient has multiple tattoos including on his years in face. Behavior: Patient is calmly seated without any agitated behavior. Speech: Patient's speech is fluent and nonpressured. Mood/Affect: Mood is improving mildly, affect is congruent and euthymic. Suicidality/Homicidality: Patient reports no suicidal or homicidal ideation, intention, and/or plan. Perceptions: Patient denies any visual hallucinations and denies any auditory hallucinations Though content/process: There is no evidence of any delusional thought content and thought process is linear and goal-directed. 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 Patient has signed adult voluntary form and medication consent and was placed in patient's chart. -Medications: Increase Zyprexa to 10 mg by mouth at bedtime for psychosis Continue Zoloft 50 mg by mouth daily. Depression/anxiety -When necessary Zyprexa and Ativan for agitation/aggression. -NRT - nicotine patch -SW on board for discharge planning. Encouraged the patient to participate in milieu.
--- NOTE | 2022-10-21 11:42 | P.MDCNMH ---
History of Present Illness H&P Date: 10/21/22 Patient is a 32-year-old male in the medical health unit here for schizoaffective disorder. [facility] physicians has been consulted for medical management. Denies any chronic medical problems. Has been diagnosed with glaucoma in the past, was seen by certified pharmacist assistant, was on eyedrops. Will be seeing certified pharmacist assistant again. No new vision changes. He also smokes half a pack a day, denies any illicit drug use, occasional alcohol use. Pertinent positives and negatives as discussed in HPI, a complete review of systems was performed and all other systems are negative. Patient seen and examined at bedside. Vital signs reviewed General: nontoxic, no distress, appears at stated age Derm: warm, dry Head: atraumatic, normocephalic, symmetric Eyes: EOMI, no lid lag, anicteric sclera, pupils equal round reactive to light ENT: Nose and ears atraumatic Neck: No thyromegaly, supple Mouth: no lip lesion, mucus membranes moist Cardiovascular: S1S2 reg, no murmur, no edema Lungs: clear to auscultation bilateral, no rhonchi, no rales, no wheeze, no accessory muscle use Abdominal: soft, nontender to palpation, no guarding, no appreciable organomegaly Ext: no gross muscle atrophy, muscle strength muscle strength 5 out of 5 in all 4 extremities, no contractures Neuro: CN II-XII grossly intact Psych: Alert, oriented, appropriate affect Assessment/Plan: Schizoaffective disorder Nicotine dependence History of glaucoma -Management per psychiatry -On nicotine patch -Currently not being treated for glaucoma, follow-up with ophthalmology outpat ient, no vision changes Thank you for allowing us to participate in the care of this pleasant patient. Do not hesitate to contact us with questions. Someone can be reached from the [facility] hospitalist group all hours of the day at [phone] or via [employer]. Past Medical History Past Medical History: No Reported History Additional Past Medical History / Comment(s): glaucoma History of Any Multi-Drug Resistant Organisms: None Reported Past Surgical History: Orthopedic Surgery Past Psychological History: No Psychological Hx Reported Smoking Status: Current every day smoker Past Alcohol Use History: Occasional Past Drug Use History: Marijuana Medications and Allergies Home Medications Medication Instructions Recorded Confirmed Type No Known Home Medications 05/10/22 05/10/22 History Allergies Allergy/AdvReac Type Severity Reaction Status Date / Time No Known Allergies Allergy Verified 10/19/22 06:46 Physical Exam Vitals: Vital Signs Temp Pulse Resp BP Pulse Ox 10/21/22 07:14 98.1 F 78 18 129/69 95 Cranial Nerve Examination - Cranial Nerves Cranial Nerve II- Optic: Intact Cranial Nerve III- Oculomotor: Intact Cranial Nerve IV- Trochlear: Intact Cranial Nerve V- Trigeminal: Intact Cranial Nerve - Abducens: Intact Cranial Nerve VII- Facial: Intact Cranial Nerve VIII- Auditory: Intact Cranial Nerve IX- Glossopharyngeal: Intact Cranial Nerve X- Vagus: Intact Cranial Nerve XI- Accessory: Intact Cranial Nerve XII- Hypoglossal: Intact Results CBC & Chem 7: 10/19/22 11:19 10/19/22 11:19
[2022-10-21] MEDS ORDERED: OLANZapine 10 MG TAB PO SCH (21:00)
[2022-10-22] MEDS: SERTRALINE 50 MG TAB PO SCH (08:07)
[2022-10-22] MEDS: NICOTINE 14MG/24HR PATCH TRANSDERM SCH (08:07)
--- NOTE | 2022-10-22 11:12 | P.DS ---
Providers Date of admission: 10/19/22 06:36 Expected date of discharge: 10/22/22 Attending physician: Jevon Arteaga MD Consults: 10/19/22 06:40 Consult Physician Routine Consulting Provider: Lakisha Physician Consult Reason/Comments: for H & P for Medical Follow Up Do you want consulting provider notified?: Yes Primary care physician: Analia Feldman - Discharge Diagnosis(es) (1) Bipolar 2 disorder, major depressive episode Current Visit: Yes Status: Acute Priority: High (2) Methamphetamine use disorder, moderate, in early remission Current Visit: Yes Status: Chronic Priority: Medium (3) Cannabis use disorder, mild, abuse Current Visit: Yes Status: Chronic Priority: Medium (4) Nicotine dependence Current Visit: Yes Status: Chronic Priority: Medium Hospital Course: Admission HPI: Initial psychiatric evaluation was completed by Dr. Rodriguez on 10/19/2022 who wrote: "IDENTIFYING DATA: Patient is a single, employed, 32-year-old male who is presenting with paranoia. HPI: Patient presented to the ED with the petition filled by his stating "He took dog leash and stated he was going to commit suicide, delusional thoughts, stating he works for the [employer], threw phone at me, aggressive paranoid, sleeping in attic/closets due to people being after him. Always hearing the phone calls of how he goes crazy and threatens them. He is getting more unstable and a threat to their lives." While in the ED, he was saying that he was "highly intelligent, I'm not like these people, I'm being detained illegally, I know the HIPPA laws, everyone in this town knows me, I don't want you to get fired over this thing." When seen this morning, patient presents as calm and superficially cooperative. He is rather tangential in his thought process and has themes of grandiosity throughout the conversation. He describes having largely grown up by himself and having to provide for himself from a young age. He says that he has been living with his spouse and their 4 children. He reports that any time his spouse or her family has a problem with him, he is kicked out of the home. He states that the paperwork to get him hospitalized was completed by "someone who doesn't even know me ". He also talks about police officers following him around and that he cannot get any doctors to watch over his care. Patient says that he believes this may be because his spouse is somehow manipulating everybody against him. Patient illustrates a pattern of concern that he is the only rational person around him and that all the events happening to him are due to people being against him. He also describes himself as "smarter than most people in the room." He believes that he can understand medical conditions based on looking at his blood work. He repeatedly describes concerns about his health and worrying that he has cancer or liver issues but says that doctors do not seem to be wanting to take care of him. He says he believes this because he cannot seem to gain weight. He says that he has been depressed since being released from nursing home in September 2021. He reports poor appetite. He endorses issues with sleep maintenance. He endorses low energy. He denies suicidal and homicidal ideation currently. Patient admits to a history of methamphetamine use. He describes a 15 year history of heavy methamphetamine use. Although he is quite guarded in describing his recent use of this, patient admits to his last use being around 1 month ago. He states that in the past few months, his use has not been regular as it had been in the past. He also describes experimenting with many different drugs. Although he does not admit to cannabis use recently, urine drug screen was positive for cannabis. Patient denies symptoms consistent with jose. He denies auditory and visual hallucinations, as asked and assessed. Patient granted this provider verbal consent to speak with his spouse Claire and his aunt Shadi over the phone. This provider was unable to get in touch with Claire. This provider spoke with Shadi over the phone who provided further history. Shadi states that patient has "scary mood swings "and has often said he "wants to kill himself ". She describes him as someone who is manipulative and thinks he is better than others. She also states that he "rants on tangents ". She says that due to all of these reasons and others, he cannot seem to hold a job for longer than a month. She says that he is noncompliant with medications but that he might say that he will be. She is hopeful that he will be stabilized prior to discharge. PSYCH HX: Patient denies having seen a psychiatrist outside of the one he saw in nursing home. He states that he was placed on Zyprexa and another medication which name he may be cannot recall. He reports doing well on the Zyprexa.. His Margaret Rousseau (patient's spouse) spoke with this provider over the phone. She described her concerns about the patient including his methamphetamine use and paranoia. She states that he believes that his phone conversations are heard by others. He is also described being followed by feds. He stated that his raps are being recorded. She says that yesterday she found him tying a noose with the dog leash in their basement. She hopes that he will he is able to be stabilized and continues to hope and support for his care. She states that he is "smooth talker "and will get people to believe that he is doing absolutely fine but she is also concerned about his medication compliance. Adding to the impression: Methamphetamine use disorder, severe - would strongly urge consideration of rehab as this substance also contributes and causes worsening of psychosis Hospital course: Upon admission to the unit patient was initially noted to be agitated, uncooperative, grandiose, tangential, and paranoid. Patient was however directable and agreeable to commence treatment. Patient got along well with other patients on the unit and followed unit protocol. Patient was compliant with the medications and denied any side effects throughout hospital course. Patient was started on Zyprexa and Zoloft for management of schizoaffective disorder. Patient spoke of his stressors and engaged in therapy both group and individual. Patient was also seen by medical team for history and physical exam. The patient did have intermittent episodes of agitation and irritability when he was first admitted. However, the patient was apologetic for his actions and became much more calm and cooperative in the milieu and with staff and peers. The patient was adherent with his medications and reported no significant side effects. As his medications were titrated, the patient became much more calm and cooperative and more grounded in reality. On the day of discharge, the patient is not reporting any suicidal or homicidal ideation, intention, and/or plan. He is not reporting any auditory or visual hallucinations. He denies any paranoia or other delusions. The patient has been adherent with his medication is not reporting any significant side effects. He denies any access to firearms or other weapons. He does report a significant history of substance abuse including methamphetamines. He was counseled at great length on abstaining from all substances including tobacco, alcohol, marijuana, and all illicit drugs, especially methamphetamines. He was counseled at length and the importance of medication adherence and appropriate outpatient follow-up. He reports some medical issues or concerns and is denying any chest pain, stress of breath, palpitations, headache, nausea, vomiting, akathisia, or tardive dyskinesia. As the patient no longer met criteria for continued inpatient psychiatric hospitalization, he was subsequently discharged. Prior to discharge a family meeting will be arranged by case management social worker to answer any questions and ensure safety upon discharge. Mental status exam: General Appearance: Patient appears to be stated age is alert, pleasant, and cooperative. Patient is in no acute distress and has fair hygiene and grooming. The patient has multiple facial tattoos Behavior: Patient is calmly seated without any agitated behavior. Speech: Patient's speech is fluent and nonpressured. Mood/Affect: Patient reports their mood is "much better", affect is congruent and euthymic to bright. Suicidality/Homicidality: Patient denies having any suicidal or homicidal ideation intent or plan. Perceptions: Patient denies any auditory or visual hallucinations. Though content/process: There is no evidence of any delusional thought content and thought process is linear and goal-directed. Patient is future and goal oriented. Memory and concentration: AOX3, grossly intact for the purposes of this session. Can spell "WORLD" backwards correctly. Judgment and insight: Improved with guarded prognosis Impression: Bipolar disorder, depressive episode methamphetamine use disorder currently in sustained remission cannabis used disorder mild nicotine dependence Plan: -Continue with discharge today as patient has improved and stabilized psychiatrically and is not currently an imminent threat to himself and/or others. Patient will remain at chronically elevated risk for harm to self and/or others due to his impulsivity and polysubstance abuse. -Continue medications: Zyprexa 10 mg by mouth at bedtime for bipolar disorder Zoloft 50 mg daily for depression and anxiety -Patient was counseled on the need for medication compliance and appropriate follow-up at mental health and also primary care for medical issues. Patient verbalized understanding and agreed. -Social work to arrange for and conduct family meeting to ensure safety upon discharge and answer any questions/concerns. Social work also to arrange for patients follow up appointments with [facility] for psychiatric care along with follow up with primary care provider. -Patient counseled on abstaining from recreational drugs and marijuana and alcohol. Was informed/educated on the adverse effects on their physical and mental health. Patient verbally agreed and understood. Patient was offered s ubstance abuse treatment however declined at this time. -Patient was instructed to return to the hospital or seek immediate medical care if their psychiatric or medical symptoms do worsen or reoccur. -Psychoeducation and supportive therapy provided to patient. Risks and benefits of pharmacological treatment versus the risks and benefits of nontreatment weighed and discussed. Informed consent discussion held. Common side effects of psychotropics discussed such as, but not limited to headache, GI disturbance, sexual dysfunction, movement disorders, sedation, and orthostatic hypotension. Life threatening and blackbox warnings of prescribed medications also discussed. Potential risks of operating a vehicle or heavy machinery discussed with patient at length. Advised on importance of compliance and a reliable and responsible manner. Patient advised to review FDA consumer labeling of all medications prior to taking. Patient verbalized understanding of potential risks, and agrees with current treatment plan. Patient advised to medically contact physician/emergency personnel if any acute changes in condition occur. Vital Signs Temp 98.1 F 10/21/22 07:14 Pulse 78 10/21/22 07:14 Resp 18 10/21/22 07:14 BP 129/69 10/21/22 07:14 Pulse Ox 95 10/21/22 07:14 FiO2 Laboratory Results WBC 7.4 k/uL (3.8-10.6) 10/19/22 11:19 RBC 5.65 m/uL (4.30-5.90) 10/19/22 11:19 Hgb 15.5 gm/dL (13.0-17.5) 10/19/22 11:19 Hct 47.9 % (39.0-53.0) 10/19/22 11:19 MCV 84.7 fL (80.0-100.0) 10/19/22 11:19 MCH 27.4 pg (25.0-35.0) 10/19/22 11:19 MCHC 32.4 g/dL (31.0-37.0) 10/19/22 11:19 RDW 13.3 % (11.5-15.5) 10/19/22 11:19 Plt Count 243 k/uL (150-450) 10/19/22 11:19 MPV 6.8 10/19/22 11:19 Neutrophils % 67 % 10/19/22 11:19 Lymphocytes % 24 % 10/19/22 11:19 Monocytes % 6 % 10/19/22 11:19 Eosinophils % 1 % 10/19/22 11:19 Basophils % 0 % 10/19/22 11:19 Neutrophils # 5.0 k/uL (1.3-7.7) 10/19/22 11:19 Lymphocytes # 1.8 k/uL (1.0-4.8) 10/19/22 11:19 Monocytes # 0.4 k/uL (0-1.0) 10/19/22 11:19 Eosinophils # 0.1 k/uL (0-0.7) 10/19/22 11:19 Basophils # 0.0 k/uL (0-0.2) 10/19/22 11:19 Sodium 139 mmol/L (137-145) 10/19/22 11:19 Potassium 3.8 mmol/L (3.5-5.1) 10/19/22 11:19 Chloride 100 mmol/L (98-107) 10/19/22 11:19 Carbon Dioxide 27 mmol/L (22-30) 10/19/22 11:19 Anion Gap 12 mmol/L 10/19/22 11:19 BUN 12 mg/dL (9-20) 10/19/22 11:19 Creatinine 0.76 mg/dL (0.66-1.25) 10/19/22 11:19 Est GFR (CKD-EPI)AfAm >90 (>60 ml/min/1.73 sqM) 10/19/22 11:19 Est GFR (CKD-EPI)NonAf >90 (>60 ml/min/1.73 sqM) 10/19/22 11:19 Glucose 88 mg/dL (74-99) 10/19/22 11:[address] Glu mg/dL 105 mg/dL 10/19/22 11:19 Hemoglobin A1c 5.3 % (<=6.0) 10/19/22 11:19 Calcium 9.6 mg/dL (8.4-10.2) 10/19/22 11:19 Total Bilirubin 0.7 mg/dL (0.2-1.3) 10/19/22 11:19 Conjugated Bilirubin 0.0 mg/dL (0.0-0.3) 10/19/22 11:19 Unconjugated Bilirubin 0.5 mg/dL (0.0-1.1) 10/19/22 11:19 Delta Bilirubin 0.2 mg/dL (0.0-0.2) 10/19/22 11:19 AST 35 U/L (17-59) 10/19/22 11:19 ALT 48 U/L (4-49) 10/19/22 11:19 Alkaline Phosphatase 58 U/L (38-126) 10/19/22 11:19 Total Protein 8.2 g/dL (6.3-8.2) 10/19/22 11:19 Albumin 4.9 g/dL (3.5-5.0) 10/19/22 11:19 Triglycerides 60.80 mg/dL (0.00-149.00) 10/19/22 11:19 Cholesterol 156.00 mg/dL (0.00-200.00) 10/19/22 11:19 LDL Cholesterol, Calc 80.4 mg/dL (0.0-131.0) 10/19/22 11:19 VLDL Cholesterol, Calc 12.16 mg/dL (5.00-40.00) 10/19/22 11:19 HDL Cholesterol 63.40 mg/dL (40.00-60.00) H 10/19/22 11:19 Cholesterol/HDL Ratio 2.46 Ratio 10/19/22 11:19 TSH 1.920 mIU/L (0.465-4.680) 10/19/22 11:19 Urine Color Light Yellow 10/19/22 01:39 Urine Appearance Clear (Clear) 10/19/22 01:39 Urine pH 6.5 (5.0-8.0) 10/19/22 01:39 Ur Specific [place] 1.004 (1.001-1.035) 10/19/22 01:39 Urine Protein Negative (Negative) 10/19/22 01:39 Urine Glucose (UA) Negative (Negative) 10/19/22 01:39 Urine Ketones Negative (Negative) 10/19/22 01:39 Urine Blood Negative (Negative) 10/19/22 01:39 Urine Nitrite Negative (Negative) 10/19/22 01:39 Urine Bilirubin Negative (Negative) 10/19/22 01:39 Urine Urobilinogen <2.0 mg/dL (<2.0) 10/19/22 01:39 Ur Leukocyte Esterase Negative (Negative) 10/19/22 01:39 Urine Opiates Screen Not Detected (NotDetected) 10/19/22 01:39 Ur Oxycodone Screen Not Detected (NotDetected) 10/19/22 01:39 Urine Methadone Screen Not Detected (NotDetected) 10/19/22 01:39 Ur Propoxyphene Screen Not Detected (NotDetected) 10/19/22 01:39 Ur Barbiturates Screen Not Detected (NotDetected) 10/19/22 01:39 U Tricyclic Antidepress Not Detected (NotDetected) 10/19/22 01:39 Ur Phencyclidine Scrn Not Detected (NotDetected) 10/19/22 01:39 Ur Amphetamines Screen Not Detected (NotDetected) 10/19/22 01:39 U Methamphetamines Scrn Not Detected (NotDetected) 10/19/22 01:39 U Benzodiazepines Scrn Not Detected (NotDetected) 10/19/22 01:39 Urine Cocaine Screen Not Detected (NotDetected) 10/19/22 01:39 U Marijuana (THC) Screen Detected (NotDetected) H 10/19/22 01:39 Coronavirus (PCR) Not Detected (Not Detectd) 10/19/22 05:40 Allergies Allergy/AdvReac Type Severity Reaction Status Date / Time No Known Allergies Allergy Verified 10/19/22 06:46 Patient Condition at Discharge: Stable Plan - Discharge Summary Discharge Rx Participant: No New Discharge Prescriptions: New Nicotine 14Mg/24Hr Patch [Habitrol] 1 patch TRANSDERM DAILY 15 Days #15 patch Sertraline [Zoloft] 50 mg PO DAILY 30 Days #30 tab OLANZapine [ZyPREXA] 10 mg PO HS 30 Days #30 tab Discharge Medication List Nicotine 14Mg/24Hr Patch [Habitrol] 1 patch TRANSDERM DAILY 15 Days #15 patch 10/22/22 [Rx] OLANZapine [ZyPREXA] 10 mg PO HS 30 Days #30 tab 10/22/22 [Rx] Sertraline [Zoloft] 50 mg PO DAILY 30 Days #30 tab 10/22/22 [Rx] Follow up Appointment(s)/Referral(s): [facility] [Outside] - 10/24/22 9:30 am (with Lisette) [facility] [[facility]STA[facility]] - 1 Week Activity/Diet/Wound Care/Special Instructions: Avoid the use of street drugs and alcohol. Take all medications as prescribed. When you are in need of refills on your medications, please contact your medical provider and/or outpatient psychiatrist to have this done. Please go to scheduled outpatient appointments for aftercare treatment. If symptoms return or become worse, call the crisis line at and/or go to the nearest emergency room for evaluation. Discharge Disposition: HOME SELF-CARE
== END 2022-10-22 11:49 | disposition home or self-care (01) | DRG 753 ==
LOC: EC 22:52 → 3MHU 10-19 06:36
PROVIDERS: ADMIT Psychiatry & Neurology Psychiatry; ATTEND Psychiatry & Neurology Psychiatry
DX: F31.81 Bipolar II disorder (principal); E03.9 Hypothyroidism, unspecified; Z20.822 Contact with and (suspected) exposure to COVID-19; F12.10 Cannabis abuse, uncomplicated; F25.1 Schizoaffective disorder, depressive type; F15.21 Other stimulant dependence, in remission; F17.210 Nicotine dependence, cigarettes, uncomplicated; Z71.6 Tobacco abuse counseling; Z71.51 Drug abuse counseling and surveillance of drug abuser; R45.851 Suicidal ideations; Z79.890 Hormone replacement therapy; Z65.3 Problems related to other legal circumstances; Z79.899 Other long term (current) drug therapy; Z91.148 Patient's other noncompliance with medication regimen for other reason
CPT/HCPCS: 80053; 80061; 80306; 81003; 82248; 83036; 84443; 85025; 87635; 99285

== ENCOUNTER 2022-11-25 02:33 | Emergency (ER) | payer OTHER ==
[2022-11-25 02:42] VITALS: TEMP 97.8
[2022-11-25] MEDS ORDERED: OLANZapine 10 MG TAB PO STA ×2 (02:58→03:15)
--- NOTE | 2022-11-25 03:03 | ED ---
General Adult HPI - General Chief complaint: Recheck/Abnormal Lab/Rx Stated complaint: Recheck, Out of meds Time Seen by Provider: 11/25/22 02:54 Source: patient, RN notes reviewed, old records reviewed Mode of arrival: ambulatory Limitations: no limitations - History of Present Illness Initial comments: 32-year-old male presenting for medication refill. Patient states he is out of his Zyprexa and states that the pharmacy does have the prescription but they have not been able to fill it. He is requesting a dose in the emergency prompt. He denies suicidal or homicidal ideation. He also states that he believes his tetanus is not up-to-date but denies any recent cuts or injury. He states that he has not told his primary care provider about this. - Related Data Previous Rx's Medication Instructions Recorded Nicotine 14Mg/24Hr Patch [Habitrol] 1 patch TRANSDERM DAILY 15 Days 10/22/22 #15 patch OLANZapine [ZyPREXA] 10 mg PO HS 30 Days #30 tab 10/22/22 Sertraline [Zoloft] 50 mg PO DAILY 30 Days #30 tab 10/22/22 Allergies Allergy/AdvReac Type Severity Reaction Status Date / Time codeine Allergy Unknown Verified 11/25/22 02:43 Childhood Review of Systems ROS Statement: Those systems with pertinent positive or pertinent negative responses have been documented in the HPI. ROS Other: All systems not noted in ROS Statement are negative. Past Medical History Past Medical History: No Reported History Additional Past Medical History / Comment(s): glaucoma History of Any Multi-Drug Resistant Organisms: None Reported Past Surgical History: Orthopedic Surgery Past Psychological History: Anxiety, Depression Smoking Status: Current every day smoker Past Alcohol Use History: Occasional Past Drug Use History: Marijuana General Exam Limitations: no limitations General appearance: alert, in no apparent distress Head exam: Present: atraumatic, normocephalic Eye exam: Present: normal appearance, PERRL ENT exam: Present: normal exam Neck exam: Present: normal inspection. Absent: tenderness, meningismus Respiratory exam: Present: normal lung sounds bilaterally. Absent: respiratory distress, wheezes Cardiovascular Exam: Present: regular rate, normal rhythm GI/Abdominal exam: Present: soft. Absent: distended, tenderness Extremities exam: Present: normal inspection, normal capillary refill Neurological exam: Present: alert, oriented X3 Psychiatric exam: Present: flat affect, homicidal ideation, suicidal ideation Skin exam: Present: warm, dry, intact Course Vital Signs 11/25/22 02:40 Temperature 97.8 F Pulse Rate 84 Respiratory 18 Rate Blood Pressure 163/94 O2 Sat by Pulse 100 Oximetry Medical Decision Making - Medical Decision Making Was pt. sent in by a medical professional or institution ([facility], [facility], urgent care, hospital, or [facility]...) When possible be specific @ -No Did you speak to anyone other than the patient for history (EMS, parent, family, police, friend...)? What history was obtained from this source @ -No Did you review nursing and triage notes (agree or disagree)? Why? @ -I reviewed and agree with nursing and triage notes Were old charts reviewed (outside hosp., previous admission, EMS record, old EKG, old radiological studies, urgent care reports/EKG's, [facility] records)? Report findings @ -No old charts were reviewed Differential Diagnosis (chest pain, altered mental status, abdominal pain women, abdominal pain men, vaginal bleeding, weakness, fever, dyspnea, syncope, headache, dizziness, GI bleed, back pain, seizure, CVA, palpatations, mental health, musculoskeletal)? @ -Medication refill EKG interpreted by me (3pts min.). @ -As above X-rays interpreted by me (1pt min.). @ -None done CT interpreted by me (1pt min.). @ -None done U/S interpreted by me (1pt. min.). @ -None done What testing was considered but not performed or refused? (CT, X-rays, U/S, labs)? Why? @ -None What meds were considered but not given or refused? Why? @ -None Did you discuss the management of the patient with other professionals (professionals i.e. [facility], [facility], lab, RT, psych nurse, 7th grade social studies teacher, optic fibre drawer, te acher, reserve officer, pillowcase maker)? Give summary @ -No Was smoking cessation discussed for >3mins.? @ -No Was critical care preformed (if so, how long)? @ -No Were there social determinants of health that impacted care today? How? (Homelessness, low income, unemployed, alcoholism, drug addiction, transportation, low edu. Level, literacy, decrease access to med. care, retirement, rehab)? @ -No Was there de-escalation of care discussed even if they declined (Discuss DNR or withdrawal of care, Hospice)? DNR status @ -No What co-morbidities impacted this encounter? (DM, HTN, Smoking, COPD, CAD, Cancer, CVA, ARF, Chemo, Hep., AIDS, mental health diagnosis, sleep apnea, morbid obesity)? @ -Mental health diagnosis Was patient admitted / discharged? Hospital course, mention meds given and route, prescriptions, significant lab abnormalities, going to OR and other pertinent info. @ -[32-year-old male requesting a dose of Zyprexa which is been out of and is currently awaiting his refill at the pharmacy. He did mention that his tetanus is not up-to-date but will discuss this with his primary care provider. Patient is hypertensive upon arrival and will require additional follow-up with his primary care provider guarding blood pressure monitoring. Undiagnosed new problem with uncertain prognosis? @ -No Drug Therapy requiring intensive monitoring for toxicity (Heparin, Nitro, Insulin, Cardizem)? @ -No Were any procedures done? @ -No Diagnosis/symptom? @ -Medication refill Acute, or Chronic, or Acute on Chronic? @ Acute Uncomplicated (without systemic symptoms) or Complicated (systemic symptoms)? @ -default Side effects of treatment? @ -No Exacerbation, Progression, or Severe Exacerbation? @ -No Poses a threat to life or bodily function? How? (Chest pain, [place], [place], pneumonia, PE, COPD, DKA, ARF, appy, cholecystitis, CVA, Diverticulitis, Homicidal, Suicidal, threat to staff... and all critical care pts) @ -No Disposition Clinical Impression: Encounter for medication refill Disposition: HOME SELF-CARE Condition: Fair Instructions (If sedation given, give patient instructions): Medicine Refill (ED) Is patient prescribed a controlled substance at d/c from ED?: No Referrals: [facility] [Primary Care Provider] - 1-2 days Time of Disposition: 03:30
[2022-11-25] MEDS ORDERED: NICOTINE 14MG/24HR PATCH TRANSDERM STA (03:22)
[2022-11-25 03:24] VITALS: BP 136/85; PULSE 88; RESP 16
== END 2022-11-25 03:48 | disposition home or self-care (01) ==
LOC: EC 02:33
DX: Z76.0 Encounter for issue of repeat prescription (principal); F12.90 Cannabis use, unspecified, uncomplicated; F17.200 Nicotine dependence, unspecified, uncomplicated; Z86.59 Personal history of other mental and behavioral disorders; Z88.5 Allergy status to narcotic agent
CPT/HCPCS: 99283; S4990

== ENCOUNTER 2022-11-28 13:32 | Emergency (ER) | payer OTHER ==
[2022-11-28 14:32] VITALS: RESP 16
[2022-11-28] MEDS ORDERED: OLANZapine 10 MG TAB PO STA (14:40)
--- NOTE | 2022-11-28 14:45 | ED ---
General Adult HPI - General Chief complaint: Medical Clearance Stated complaint: Med Refill Time Seen by Provider: 11/28/22 14:35 Source: patient, RN notes reviewed, old records reviewed Mode of arrival: ambulatory Limitations: no limitations - History of Present Illness Initial comments: 32-year-old male presenting for evaluation and request for medication refill. Patient is on Zyprexa 10 mg. He states that there is been an error between his primary care provider and the pharmacy. He is requesting a prescription for Zyprexa. - Related Data Previous Rx's Medication Instructions Recorded Nicotine 14Mg/24Hr Patch [Habitrol] 1 patch TRANSDERM DAILY 15 Days 10/22/22 #15 patch OLANZapine [ZyPREXA] 10 mg PO HS 30 Days #30 tab 10/22/22 Sertraline [Zoloft] 50 mg PO DAILY 30 Days #30 tab 10/22/22 OLANZapine [ZyPREXA] 10 mg PO HS 30 Days #30 tab 11/28/22 Allergies Allergy/AdvReac Type Severity Reaction Status Date / Time codeine Allergy Unknown Verified 11/25/22 02:43 Childhood Review of Systems ROS Statement: Those systems with pertinent positive or pertinent negative responses have been documented in the HPI. ROS Other: All systems not noted in ROS Statement are negative. Past Medical History Past Medical History: No Reported History Additional Past Medical History / Comment(s): glaucoma History of Any Multi-Drug Resistant Organisms: None Reported Past Surgical History: Orthopedic Surgery Past Psychological History: Anxiety, Depression Smoking Status: Current some day smoker Past Alcohol Use History: Occasional Past Drug Use History: Marijuana General Exam Limitations: no limitations General appearance: alert, in no apparent distress Head exam: Present: atraumatic, normocephalic Eye exam: Present: normal appearance, PERRL Neck exam: Present: normal inspection Respiratory exam: Present: normal lung sounds bilaterally. Absent: respiratory distress Cardiovascular Exam: Present: regular rate, normal rhythm GI/Abdominal exam: Present: soft. Absent: distended, tenderness Extremities exam: Present: normal inspection, normal capillary refill Neurological exam: Present: alert, oriented X3 Psychiatric exam: Present: normal affect, normal mood Skin exam: Present: warm, dry, intact Course Vital Signs 11/28/22 14:28 Temperature 98.7 F Pulse Rate 68 Respiratory 16 Rate Blood Pressure 120/79 O2 Sat by Pulse 98 Oximetry Medical Decision Making - Medical Decision Making Was pt. sent in by a medical professional or institution ([facility] Royal, B[employer] RE[employer]ER, urgent care, hospital, or snf...) When possible be specific @ -No Did you speak to anyone other than the patient for history (EMS, parent, family, police, friend...)? What history was obtained from this source @ -No Did you review nursing and triage notes (agree or disagree)? Why? @ -I reviewed and agree with nursing and triage notes Were old charts reviewed (outside hosp., previous admission, EMS record, old EKG, old radiological studies, urgent care reports/EKG's, snf records)? Report findings @ -No old charts were reviewed Differential Diagnosis (chest pain, altered mental status, abdominal pain women, abdominal pain men, vaginal bleeding, weakness, fever, dyspnea, syncope, headache, dizziness, GI bleed, back pain, seizure, CVA, palpatations, mental health, musculoskeletal)? @ -Medication refill EKG interpreted by me (3pts min.). @ -As above X-rays interpreted by me (1pt min.). @ -None done CT interpreted by me (1pt min.). @ -None done U/S interpreted by me (1pt. min.). @ -None done What testing was considered but not performed or refused? (CT, X-rays, U/S, labs)? Why? @ -None What meds were considered but not given or refused? Why? @ -None Did you discuss the management of the patient with other professionals (professionals i.e. MARK Royal, B[employer]S REVERSER, lab, RT, psych nurse, social welfare clerk, dispatch clerk, teacher, neighborhood conservation officer, case advocate)? Give summary @ -No Was smoking cessation discussed for >3mins.? @ -No Was critical care preformed (if so, how long)? @ -No Were there social determinants of health that impacted care today? How? (Homelessness, low income, unemployed, alcoholism, drug addiction, transportation, low edu. Level, literacy, decrease access to med. care, nursing home, rehab)? @ -No Was there de-escalation of care discussed even if they declined (Discuss DNR or withdrawal of care, Hospice)? DNR status @ -No What co-morbidities impacted this encounter? (DM, HTN, Smoking, COPD, CAD, Cancer, CVA, ARF, Chemo, Hep., AIDS, mental health diagnosis, sleep apnea, morbid obesity)? @ -None Was patient admitted / discharged? Hospital course, mention meds given and route, prescriptions, significant lab abnormalities, going to OR and other pertinent info. @ -[32-year-old male presenting for medication refill. I will provide a 30 day supply prescription for Zyprexa 10 mg. Patient should follow-up with the primary care physician for future prescriptions. Undiagnosed new problem with uncertain prognosis? @ -No Drug Therapy requiring intensive monitoring for toxicity (Heparin, Nitro, Insulin, Cardizem)? @ -No Were any procedures done? @ -No Diagnosis/symptom? @ -[medication refill Acute, or Chronic, or Acute on Chronic? @ -default Uncomplicated (without systemic symptoms) or Complicated (systemic symptoms)? @ -default Side effects of treatment? @ -No Exacerbation, Progression, or Severe Exacerbation? @ -No Poses a threat to life or bodily function? How? (Chest pain, [place], [place], pneumonia, PE, COPD, DKA, ARF, appy, cholecystitis, CVA, Diverticulitis, Homicidal, Suicidal, threat to staff... and all critical care pts) @ -No Disposition Clinical Impression: Encounter for medication refill Disposition: HOME SELF-CARE Condition: Good Instructions (If sedation given, give patient instructions): Medicine Refill (ED) Prescriptions: OLANZapine [ZyPREXA] 10 mg PO HS 30 Days #30 tab Is patient prescribed a controlled substance at d/c from ED?: No Referrals: [facility] [Primary Care Provider] - 1-2 days Time of Disposition: 14:43
[2022-11-28 15:25] VITALS: BP 113/70; PULSE 73; TEMP 97.6
== END 2022-11-28 15:25 | disposition home or self-care (01) ==
LOC: EC 13:32
DX: Z76.0 Encounter for issue of repeat prescription (principal); F17.200 Nicotine dependence, unspecified, uncomplicated; F12.90 Cannabis use, unspecified, uncomplicated; Z88.5 Allergy status to narcotic agent
CPT/HCPCS: 99282

== ENCOUNTER 2023-07-01 11:37 | Emergency (ER) | payer BC, OTHER ==
--- NOTE | 2023-07-01 12:28 | XR ---
EXAMINATION TYPE: XR chest 2V DATE OF EXAM: 07/01/2023 COMPARISON: 01/23/2020 HISTORY: 33-year-old male with cough TECHNIQUE: PA and lateral views FINDINGS: The cardiomediastinal silhouette, aorta, and pulmonary vasculature are within normal limits. Lungs an d pleural spaces are clear. IMPRESSION: No acute cardiopulmonary process.
--- NOTE | 2023-07-01 12:40 | ED ---
URI HPI - General Chief Complaint: Upper Respiratory Infection Stated Complaint: Cough,VIRGILIO Time Seen by Provider: 07/01/23 11:48 Source: patient, RN notes reviewed Mode of arrival: ambulatory Limitations: no limitations - History of Present Illness Initial Comments: 33-year-old male presents emergency department with chief complaint of cough congestion. Patient states has not felt well and over a week. He states initially started getting better but has worsened. Patient states he has a dry nonproductive cough at this time he has continuation of nasal congestion and mild sore throat and fever. Patient had multiple sick contacts at home. - Related Data Previous Rx's Medication Instructions Recorded Nicotine 14Mg/24Hr Patch [Habitrol] 1 patch TRANSDERM DAILY 15 Days 10/22/22 #15 patch OLANZapine [ZyPREXA] 10 mg PO HS 30 Days #30 tab 10/22/22 Sertraline [Zoloft] 50 mg PO DAILY 30 Days #30 tab 10/22/22 OLANZapine [ZyPREXA] 10 mg PO HS 30 Days #30 tab 11/28/22 Azithromycin [Zithromax Z Pack] 0 tab PO DIRECTED #6 tab 07/01/23 Allergies Allergy/AdvReac Type Severity Reaction Status Date / Time codeine Allergy Unknown Verified 07/01/23 11:53 Childhood Review of Systems ROS Statement: Those systems with pertinent positive or pertinent negative responses have been documented in the HPI. ROS Other: All systems not noted in ROS Statement are negative. Past Medical History Past Medical History: No Reported History, Asthma, Hypertension Additional Past Medical History / Comment(s): glaucoma History of Any Multi-Drug Resistant Organisms: None Reported Past Surgical History: Orthopedic Surgery Past Psychological History: Anxiety, Depression Smoking Status: Current some day smoker, Vaper Past Alcohol Use History: Occasional Past Drug Use History: Marijuana General Exam Limitations: no limitations General appearance: alert, in no apparent distress Head exam: Present: atraumatic, normocephalic, normal inspection Eye exam: Present: normal appearance, PERRL, EOMI. Absent: scleral icterus, conjunctival injection, periorbital swelling Neck exam: Present: normal inspection, full ROM. Absent: tenderness, meningismus, lymphadenopathy Respiratory exam: Present: normal lung sounds bilaterally. Absent: respiratory distress, wheezes, rales, rhonchi, stridor Cardiovascular Exam: Present: regular rate, normal rhythm, normal heart sounds. Absent: systolic murmur, diastolic murmur, rubs, gallop, clicks Course Vital Signs 07/01/23 07/01/23 07/01/23 11:50 12:04 13:08 Temperature 98.2 F 98.0 F Pulse Rate 74 72 Respiratory 18 18 17 Rate Blood Pressure 130/82 117/68 O2 Sat by Pulse 97 95 Oximetry Medical Decision Making - Medical Decision Making Was pt. sent in by a medical professional or institution ([facility], CLEANER, urgent care, hospital, or intermediate...) When possible be specific @ -No Did you speak to anyone other than the patient for history (EMS, parent, family, police, friend...)? What history was obtained from this source @ -No Did you review nursing and triage notes (agree or disagree)? Why? @ -I reviewed and agree with nursing and triage notes Were old charts reviewed (outside hosp., previous admission, EMS record, old EKG, old radiological studies, urgent care reports/EKG's, intermediate records)? Report findings @ -No old charts were reviewed Differential Diagnosis (chest pain, altered mental status, abdominal pain women, abdominal pain men, vaginal bleeding, weakness, fever, dyspnea, syncope, headache, dizziness, GI bleed, back pain, seizure, CVA, palpatations, mental health, musculoskeletal)? @ -M COVID 19, RSV, influenza, pneumonia, acute bronchitis, URI, this list is not all inclusive EKG interpreted by me (3pts min.). @ -None X-rays interpreted by me (1pt min.). @ -[Chest x-ray shows no evidence of infiltrate or pneumothorax CT interpreted by me (1pt min.). @ -None done U/S interpreted by me (1pt. min.). @ -None done What testing was considered but not performed or refused? (CT, X-rays, U/S, labs)? Why? @ -None What meds were considered but not given or refused? Why? @ -None Did you discuss the management of the patient with other professionals (professionals i.e. MARK Royal, CLEANER, lab, RT, psych nurse, social science professor, veneer matcher, teacher, fare enforcement officer, cyanide case hardener)? Give summary @ -No Was smoking cessation discussed for >3mins.? @ -No Was critical care preformed (if so, how long)? @ -No Were there social determinants of health that impacted care today? How? (Homelessness, low income, unemployed, alcoholism, drug addiction, transportation, low edu. Level, literacy, decrease access to med. care, [facility]pc, rehab)? @ -No Was there de-escalation of care discussed even if they declined (Discuss DNR or withdrawal of care, Hospice)? DNR status @ -No What co-morbidities impacted this encounter? (DM, HTN, Smoking, COPD, CAD, Cancer, CVA, ARF, Chemo, Hep., AIDS, mental health diagnosis, sleep apnea, morbid obesity)? @ -None Was patient admitted / discharged? Hospital course, mention meds given and route, prescriptions, significant lab abnormalities, going to OR and other pertinent info. @ -[Discharge patient has acute tracheobronchitis., Patient discharged on azithromycin return plans discussed. Undiagnosed new problem with uncertain prognosis? @ -No Drug Therapy requiring intensive monitoring for toxicity (Heparin, Nitro, Insulin, Cardizem)? @ -No Were any procedures done? @ -No Diagnosis/symptom? @ -Tracheobronchitis Acute, or Chronic, or Acute on Chronic? @ -[Acute Uncomplicated (without systemic symptoms) or Complicated (systemic symptoms)? @ -Uncomplicated Side effects of treatment? @ -No Exacerbation, Progression, or Severe Exacerbation? @ -No Poses a threat to life or bodily function? How? (Chest pain, [place], [place], pneumonia, PE, COPD, DKA, ARF, appy, cholecystitis, CVA, Diverticulitis, Homicidal, Suicidal, threat to staff... and all critical care pts) @ -No - Lab Data Lab Results 07/01/23 07/01/23 Range/Units 11:54 11:54 Influenza Type A (PCR) Not Detected (Not Detectd) Influenza Type B (PCR) Not Detected (Not Detectd) RSV (PCR) Not Detected (Not Detectd) SARS-CoV-2 (PCR) Not Detected (Not Detectd) Group A Strep (PCR) NOT DETECTED (Not Detectd) Disposition Clinical Impression: Tracheobronchitis Disposition: HOME SELF-CARE Condition: Stable Instructions (If sedation given, give patient instructions): Upper Respiratory Infection (ED) Additional Instructions: Please return to the Emergency Department if symptoms worsen or any other concerns. Prescriptions: Azithromycin [Zithromax Z Pack] 0 tab PO DIRECTED #6 tab Is patient prescribed a controlled substance at d/c from ED?: No Referrals: Roshan Choudhary MD [Primary Care Provider] - 1-2 days Time of Disposition: 12:59
[2023-07-01 13:14] VITALS: BP 117/68; PULSE 72; RESP 17; TEMP 98
== END 2023-07-01 13:08 | disposition home or self-care (01) ==
LOC: EC 11:37
DX: J45.909 Unspecified asthma, uncomplicated (principal); I10 Essential (primary) hypertension; F41.9 Anxiety disorder, unspecified; F32.A Depression, unspecified; F17.290 Nicotine dependence, other tobacco product, uncomplicated; F12.90 Cannabis use, unspecified, uncomplicated; Z79.899 Other long term (current) drug therapy; Z88.5 Allergy status to narcotic agent
CPT/HCPCS: 71046; 87636; 87651; 99285

== ENCOUNTER 2023-09-18 08:47 | Emergency (ER) | payer BC, OTHER ==
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
[2023-09-18 09:32] VITALS: BP 113/76; RESP 20; TEMP 98
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
[2023-09-18] MEDS: IPRATROPIUM-ALBUTEROL 3 ML NEB INHALATION STA (10:14)
[2023-09-18 10:31] VITALS: PULSE 72
== END 2023-09-18 10:55 | disposition home or self-care (01) ==
LOC: EC 08:47
DX: J70.5 Respiratory conditions due to smoke inhalation (principal); F17.200 Nicotine dependence, unspecified, uncomplicated; Z88.5 Allergy status to narcotic agent; X08.8XXA Exposure to other specified smoke, fire and flames, initial encounter
CPT/HCPCS: 71046; 94640; 99284

== ENCOUNTER 2023-09-27 12:00 | Emergency (ER) | payer BC, OTHER ==
[2023-09-27 12:37] VITALS: RESP 18
--- NOTE | 2023-09-27 13:22 | ED ---
ENT HPI - General Chief complaint: Dental/Oral Stated complaint: Oral Pain Time Seen by Provider: 09/27/23 12:39 Source: patient, RN notes reviewed, old records reviewed Mode of arrival: ambulatory Limitations: no limitations - History of Present Illness Initial comments: This is a 33-year-old male to the ER for evaluation history of dental caries history of dental abscess. Patient is having severe dental pain currently. Patient states pain has been persistent not currently on antibiotics and has no adequate pain control at home. MD complaint: tooth pain, other (Pain) -: hour(s) Location: tooth # Severity: moderate Severity scale (1-10): 4 Quality: aching Consistency: constant Worsens with: none Context- Dental: poor dental care Associated Symptoms: other (0) - Related Data Previous Rx's Medication Instructions Recorded Nicotine 14Mg/24Hr Patch [Habitrol] 1 patch TRANSDERM DAILY 15 Days 10/22/22 #15 patch OLANZapine [ZyPREXA] 10 mg PO HS 30 Days #30 tab 10/22/22 Sertraline [Zoloft] 50 mg PO DAILY 30 Days #30 tab 10/22/22 OLANZapine [ZyPREXA] 10 mg PO HS 30 Days #30 tab 11/28/22 Azithromycin [Zithromax Z Pack] 0 tab PO DIRECTED #6 tab 07/01/23 predniSONE [Deltasone] 20 mg PO BID #6 tab 09/18/23 Allergies Allergy/AdvReac Type Severity Reaction Status Date / Time codeine Allergy Unknown Verified 09/18/23 08:53 Childhood Review of Systems ROS Statement: Those systems with pertinent positive or pertinent negative responses have been documented in the HPI. ROS Other: All systems not noted in ROS Statement are negative. Past Medical History Past Medical History: No Reported History, Asthma, Hypertension Additional Past Medical History / Comment(s): glaucoma History of Any Multi-Drug Resistant Organisms: None Reported Past Surgical History: Orthopedic Surgery Past Psychological History: Anxiety, Depression Smoking Status: Former smoker, Vaper Past Alcohol Use History: Occasional Past Drug Use History: Marijuana General Exam Limitations: no limitations General appearance: alert, in no apparent distress Head exam: Present: atraumatic, normocephalic, normal inspection Eye exam: Present: normal appearance, PERRL, EOMI. Absent: scleral icterus, conjunctival injection, periorbital swelling ENT exam: Present: normal exam, mucous membranes moist Neck exam: Present: normal inspection. Absent: tenderness, meningismus, lymp hadenopathy Respiratory exam: Present: normal lung sounds bilaterally. Absent: respiratory distress, wheezes, rales, rhonchi, stridor Cardiovascular Exam: Present: regular rate, normal rhythm, normal heart sounds. Absent: systolic murmur, diastolic murmur, rubs, gallop, clicks GI/Abdominal exam: Present: soft, normal bowel sounds. Absent: distended, tenderness, guarding, rebound, rigid Extremities exam: Present: normal inspection, full ROM, normal capillary refill. Absent: tenderness, pedal edema, joint swelling, calf tenderness Back exam: Present: normal inspection Neurological exam: Present: alert, oriented X3, CN II-XII intact Psychiatric exam: Present: normal affect, normal mood Skin exam: Present: warm, dry, intact, normal color. Absent: rash Course Vital Signs 09/27/23 09/27/23 12:09 13:47 Temperature 97.8 F 98.3 F Pulse Rate 86 77 Respiratory 18 18 Rate Blood Pressure 129/83 133/81 O2 Sat by Pulse 99 98 Oximetry - Reevaluation(s) Reevaluation #1: Medical records reviewed Reevaluation #2: Patient symptoms unchanged Reevaluation #3: Patient informed of results and questions answered Reevaluation #4: Was pt. sent in by a medical professional or institution (, PA, FRESH WORK INSPECTOR, urgent care, hospital, or half-way...) When possible be specific @ -no Did you speak to anyone other than the patient for history (EMS, parent, family, police, friend...)? What history was obtained from this source @ -no Did you review nursing and triage notes (agree or disagree)? Why? @ -agree Are old charts reviewed (outside hosp., previous admission, EMS record, old EKG, old radiological studies, urgent care reports/EKG's, half-way records)? Report findings @ -yes Differential Diagnosis (chest pain, altered mental status, abdominal pain women, abdominal pain men, vaginal bleeding, weakness, fever, dyspnea, syncope, headache, dizziness, GI bleed, back pain, seizure, CVA, palpatations, mental health, musculoskeletal)? @ -prior EKG interpreted by me (3pts min.). @ -no X-rays interpreted by me (1pt min.). @ -no CT interpreted by me (1pt min.). @ -no U/S interpreted by me (1pt. min.). @ -no What testing was considered but not performed or refused? (CT, X-rays, U/S, labs)? Why? @ -none What meds were considered but not given or refused? Why? @ -none Did you discuss the management of the patient with other professionals (professionals i.e. , PA, FRESH WORK INSPECTOR, lab, RT, psych nurse, medical social worker, water resources engineer, teacher, first officer and flight instructor, rehabilitation caseworker)? Give summary @ -no Was smoking cessation discussed for >3mins.? @ -no Were there social determinants of health that impacted care today? How? (Homelessness, low income, unemployed, alcoholism, drug addiction, transportation, low edu. Level, literacy, decrease access to med. care, longterm, rehab)? @ -none Was there de-escalation of care discussed even if they declined (Discuss DNR or withdrawal of care, Hospice)? DNR status @ -no What co-morbidities impacted this encounter? (DM, HTN, Smoking, COPD, CAD, Cancer, CVA, ARF, Chemo, Hep., AIDS, mental health diagnosis, sleep apnea, morbid obesity)? @ -none Was patient admitted / discharged? Hospital course, mention meds given and route, prescriptions, significant lab abnormalities, going to OR and other pertinent info. @ - 33 male to ER with dental pain dental caries dental abscess placed on antibiotics as well as pain control and can be discharged home Was critical care preformed (if so, how long)? @ -no Undiagnosed new problem with uncertain prognosis? @ -no Drug Therapy requiring intensive monitoring for toxicity (Heparin, Nitro, Insulin, Cardizem)? @ -no Were any procedures done? @ -no Diagnosis/symptom? @ -Dental abscess dental caries with dental pain Acute, or Chronic, or Acute on Chronic? @ -Acute Uncomplicated (without systemic symptoms) or Complicated (systemic symptoms)? @ -Complicated Side effects of treatment? @ -no Exacerbation, Progression, or Severe Exacerbation? @ -exacerbation Poses a threat to life or bodily function? How? (Chest pain, [place], [place], pneumonia, PE, COPD, DKA, ARF, appy, cholecystitis, CVA, Diverticulitis, Homicidal, Suicidal, threat to staff... and all critical care pts) @ -no Medical Decision Making - Medical Decision Making 33 male to ER with dental pain dental caries dental abscess placed on antibiotics as well as pain control and can be discharged home Disposition Clinical Impression: Dental abscess, Dental caries Disposition: HOME SELF-CARE Condition: Good Instructions (If sedation given, give patient instructions): Dental Abscess (ED), Toothache (ED) Is patient prescribed a controlled substance at d/c from ED?: No Referrals: Roshan Choudhary MD [Primary Care Provider] - 1-2 days Time of Disposition: 13:20
[2023-09-27] MEDS: traMADol 50 MG TAB PO STA (13:42)
[2023-09-27] MEDS: AMOXIC-POT CLAV 875-125MG 1 EACH TAB PO STA (13:42)
[2023-09-27] MEDS: AMOXIC-POT CLAV 875MG STARTER PACK 2 TAB BTL PO STA (13:44)
[2023-09-27] MEDS: traMADol 50 MG STARTER PACK 3 TAB BTL PO STA (13:44)
[2023-09-27] MEDS: IBUPROFEN 600 MG STARTER PACK 4 TAB BTL PO STA (13:45)
[2023-09-27 14:21] VITALS: BP 133/81; PULSE 77; TEMP 98.3
== END 2023-09-27 13:49 | disposition home or self-care (01) ==
LOC: EC 12:00
DX: K04.7 Periapical abscess without sinus (principal); K02.9 Dental caries, unspecified; F17.290 Nicotine dependence, other tobacco product, uncomplicated; F12.90 Cannabis use, unspecified, uncomplicated; Z88.5 Allergy status to narcotic agent
CPT/HCPCS: 99282

== ENCOUNTER 2023-10-25 15:07 | Emergency (ER) | payer OTHER ==
--- NOTE | 2023-10-25 15:50 | ED ---
General Adult HPI - General Chief complaint: Abdominal Pain Stated complaint: burning in abd Time Seen by Provider: 10/25/23 15:38 Source: patient Mode of arrival: ambulatory Limitations: no limitations - History of Present Illness Initial comments: Dictation was produced using [employer] dictation software. please excuse any grammatical, word or spelling errors. Chief Complaint: 33-year-old male with epigastric burning History of Present Illness: Patient is a 33-year-old male presents emergency department for acute on chronic epigastric burning. Patient states that he does not know of any medical problems. He states he is here because he wants to know if he has any medical problems. Denies any comorbidities. Does not take any medications. Patient states that sometimes when he eats he has some burning in his epigastric area. Denies any abdominal surgery. No nausea or vomiting The ROS documented in this emergency department record has been reviewed and confirmed by me. Those systems with pertinent positive or negative responses have been documented in the HPI. All other systems are other negative and/or noncontributory. - Related Data Previous Rx's Medication Instructions Recorded Nicotine 14Mg/24Hr Patch [Habitrol] 1 patch TRANSDERM DAILY 15 Days 10/22/22 #15 patch OLANZapine [ZyPREXA] 10 mg PO HS 30 Days #30 tab 10/22/22 Sertraline [Zoloft] 50 mg PO DAILY 30 Days #30 tab 10/22/22 OLANZapine [ZyPREXA] 10 mg PO HS 30 Days #30 tab 11/28/22 Azithromycin [Zithromax Z Pack] 0 tab PO DIRECTED #6 tab 07/01/23 predniSONE [Deltasone] 20 mg PO BID #6 tab 09/18/23 Pantoprazole [Protonix] 40 mg PO DAILY 14 Days #14 tab 10/25/23 Allergies Allergy/AdvReac Type Severity Reaction Status Date / Time codeine Allergy Unknown Verified 10/25/23 15:32 Childhood Review of Systems ROS Statement: Those systems with pertinent positive or pertinent negative responses have been documented in the HPI. ROS Other: All systems not noted in ROS Statement are negative. Past Medical History Past Medical History: No Reported History, Asthma, Hypertension Additional Past Medical History / Comment(s): glaucoma History of Any Multi-Drug Resistant Organisms: None Reported Past Surgical History: Orthopedic Surgery Past Psychological History: Anxiety, Depression Smoking Status: Former smoker, Vaper Past Alcohol Use History: Occasional Past Drug Use History: Marijuana General Exam - General Exam Comments Initial Comments: PHYSICAL EXAM: General Impression: Alert and oriented x3, not in acute distress HEENT: Normocephalic atraumatic, extra-ocular movements intact, pupils equal and reactive to light bilaterally, mucous membranes moist. Cardiovascular: Heart regular rate and rhythm Chest: Able to complete full sentences, no retractions, no tachypnea Abdomen: abdomen soft, non-tender, non-distended, no organomegaly Musculoskeletal: Pulses present and equal in all extremities, no peripheral edema Motor: no focal deficits noted Neurological: CN II-XII grossly intact, no focal motor or sensory deficits noted Skin: Intact with no visualized rashes Psych: Normal affect and mood Limitations: no limitations Course Vital Signs 10/25/23 15:25 Temperature 98.6 F Pulse Rate 91 Respiratory 16 Rate Blood Pressure 148/54 O2 Sat by Pulse 99 Oximetry EKG Findings - EKG Comments: EKG Findings:: My EKG interpretation: Ventricular rate 53, sinus bradycardia,. 141, cures 80, QTc 393. No MS prolongation, no QTC prolongation, no ST or T-wave changes noted. Overall, this EKG is unremarkable Medical Decision Making - Medical Decision Making Was pt. sent in by a medical professional or institution (, PA, FIRER PORTABLE BOILER, urgent care, hospital, or retirement...) When possible be specific @ -No Did you speak to anyone other than the patient for history (EMS, parent, family, police, friend...)? What history was obtained from this source @ -No Did you review nursing and triage notes (agree or disagree)? Why? @ -I reviewed and agree with nursing and triage notes Were old charts reviewed (outside hosp., previous admission, EMS record, old EKG, old radiological studies, urgent care reports/EKG's, retirement records)? Report findings @ -No old charts were reviewed Differential Diagnosis (chest pain, altered mental status, abdominal pain women, abdominal pain men, vaginal bleeding, musculoskeletal, weakness, fever, dyspnea, syncope, headache, dizziness, GI bleed, back pain, seizure, CVA, palpatations, mental health)? @ -Differential Abdominal Pain Men: Appendicitis, cholecystitis, diverticulosis, ischemic bowel, pancreatitis, hepatitis, UTI, gastroenteritis, AAA, incarcerated hernia, bowel obstruction, constipation, inflammatory bowel, hepatitis, peptic ulcer disease, splenic infarction, perforated viscus, testicular torsion, this is not meant to be an all-inclusive list EKG interpreted by me (3pts min.). @ -None done X-rays interpreted by me (1pt min.). @ -None done CT interpreted by me (1pt min.). @ -None done U/S interpreted by me (1pt. min.). @ -None done What testing was considered but not performed or refused? (CT, X-rays, U/S, labs)? Why? @ -None What meds were considered but not given or refused? Why? @ -None Was smoking cessation discussed for >3mins.? @ -No Were there social determinants of health that impacted care today? How? (Homelessness, low income, unemployed, alcoholism, drug addiction, transportation, low edu. Level, literacy, decrease access to med. care, halfway, rehab)? @ -No Was there de-escalation of care discussed even if they declined (Discuss DNR or withdrawal of care, Hospice)? DNR status @ -No What co-morbidities impacted this encounter? (DM, HTN, Smoking, COPD, CAD, Cancer, CVA, ARF, Chemo, Hep., AIDS, mental health diagnosis, sleep apnea, morbid obesity)? @ -None Was patient admitted / discharged? Hospital course, mention meds given and route, prescriptions, significant lab abnormalities, going to OR and other pertinent info. @ -33-year-old healthy male with no significant comorbidities presents to the emergency department with sensation of epigastric burning. No signs stable. Physical examination is benign. Patient no acute distress. And imaging are unremarkable. Patient reports significant improvement with GI cocktail. Patient given prescription for Protonix and referral to GI specialist. Did you discuss the management of the patient with other professionals ( professionals i.e. , PA, FIRER PORTABLE BOILER, lab, RT, psych nurse, social service technician, airplane refueler, teacher, youth officer, window caser)? Give summary @ -No Was critical care preformed (if so, how long)? @ -No Undiagnosed new problem with uncertain prognosis? @ -No Drug Therapy requiring intensive monitoring for toxicity (Heparin, Nitro, Insulin, Cardizem)? @ -No Were any procedures done? @ -No Diagnosis/symptom? Acute, or Chronic, or Acute on Chronic? Uncomplicated (without systemic symptoms) or Complicated (systemic symptoms)? @ -Gastritis Side effects of treatment? @ -No Exacerbation, Progression, or Severe Exacerbation? @ -No Poses a threat to life or bodily function? How? (Chest pain, [place], [place], pneumonia, PE, COPD, DKA, ARF, appy, cholecystitis, CVA, Diverticulitis, Homicidal, Suicidal, threat to staff... and all critical care pts) @ -No - Lab Data Result diagrams: 10/25/23 16:02 10/25/23 16:02 Lab Results 10/25/23 10/25/23 Range/Units 16:02 16:02 WBC 8.1 (3.8-10.6) k/uL RBC 5.40 (4.30-5.90) m/uL Hgb 14.3 (13.0-17.5) gm/dL Hct 44.7 (39.0-53.0) % MCV 82.8 (80.0-100.0) fL MCH 26.5 (25.0-35.0) pg MCHC 32.0 (31.0-37.0) g/dL RDW 13.5 (11.5-15.5) % Plt Count 302 (150-450) k/uL MPV 7.1 Neutrophils % 62 % Lymphocytes % 26 % Monocytes % 8 % Eosinophils % 2 % Basophils % 1 % Neutrophils # 5.0 (1.3-7.7) k/uL Lymphocytes # 2.1 (1.0-4.8) k/uL Monocytes # 0.7 (0-1.0) k/uL Eosinophils # 0.2 (0-0.7) k/uL Basophils # 0.0 (0-0.2) k/uL Sodium 137 (137-145) mmol/L Potassium 4.2 (3.5-5.1) mmol/L Chloride 106 (98-107) mmol/L Carbon Dioxide 23 (22-30) mmol/L Anion Gap 8 mmol/L BUN 15 (9-20) mg/dL Creatinine 0.69 (0.66-1.25) mg/dL Est GFR (CKD-EPI)AfAm >90 (>60 ml/min/1.73 sqM) Est GFR (CKD-EPI)NonAf >90 (>60 ml/min/1.73 sqM) Glucose 120 H (74-99) mg/dL Calcium 9.4 (8.4-10.2) mg/dL Total Bilirubin 1.2 (0.2-1.3) mg/dL AST 46 (17-59) U/L ALT 34 (4-49) U/L Alkaline Phosphatase 69 (38-126) U/L Total Protein 7.2 (6.3-8.2) g/dL Albumin 4.8 (3.5-5.0) g/dL Lipase 20 L (23-300) U/L Disposition Clinical Impression: Gastritis Disposition: HOME SELF-CARE Condition: Good Instructions (If sedation given, give patient instructions): Gastritis (ED) Prescriptions: Pantoprazole [Protonix] 40 mg PO DAILY 14 Days #14 tab Is patient prescribed a controlled substance at d/c from ED?: No Referrals: Magnolia Montero MD [STAFF PHYSICIAN] - 1-2 days Time of Disposition: 16:35
[2023-10-25] MEDS: MAG HYDROX/AL HYDROX/SIMETH 30 ML, HYOSCYAMINE ELIXIR 10 ML, LIDOCAINE VISCOUS 2% 10 ML PO STA (16:04)
[2023-10-25 16:18] LABS: Basophils % (A) 1 %; Eosinophils # (A) 0.2 k/uL (0-0.7); Eosinophils % (A) 2 %; HCT 44.7 % (39.0-53.0); HGB 14.3 gm/dL (13.0-17.5); Lymphocytes # (A) 2.1 k/uL (1.0-4.8); Lymphocytes % (A) 26 %; MCH 26.5 pg (25.0-35.0); MCV 82.8 fL (80.0-100.0); Mean Platelet Volume 7.1; Monocytes # (A) 0.7 k/uL (0-1.0); Monocytes % (A) 8 %; Neutrophils % (A) 62 %; Platelet Count 302 k/uL (150-450); RDW 13.5 % (11.5-15.5); WBC 8.1 k/uL (3.8-10.6)
[2023-10-25 16:29] LABS: ALT 34 U/L (4-49); AST 46 U/L (17-59); African American GFR (CKD) >90 (>60 ml/min/1.73 sqM); Albumin 4.8 g/dL (3.5-5.0); Alkaline Phosphatase 69 U/L (38-126); Anion Gap 8 mmol/L; Blood Urea Nitrogen 15 mg/dL (9-20); Calcium 9.4 mg/dL (8.4-10.2); Carbon Dioxide 23 mmol/L (22-30); Chloride 106 mmol/L (98-107); Glucose 120 mg/dL (74-99); Lipase 20 U/L (23-300); Non-African American GFR(CKD) >90 (>60 ml/min/1.73 sqM); Potassium 4.2 mmol/L (3.5-5.1); Sodium 137 mmol/L (137-145); Total Bilirubin 1.2 mg/dL (0.2-1.3); Total Protein 7.2 g/dL (6.3-8.2)
[2023-10-25 16:58] VITALS: BP 126/76; PULSE 68; RESP 18; TEMP 97.7
== END 2023-10-25 16:43 | disposition home or self-care (01) ==
LOC: EC 15:07
DX: K29.70 Gastritis, unspecified, without bleeding (principal); F17.290 Nicotine dependence, other tobacco product, uncomplicated; Z88.5 Allergy status to narcotic agent
CPT/HCPCS: 36415; 80053; 83690; 85025; 93005; 99284

== ENCOUNTER 2023-11-07 12:37 | Emergency (ER) | payer OTHER ==
[2023-11-07 12:50] VITALS: BP 119/71; PULSE 71; RESP 16; TEMP 97.7
--- NOTE | 2023-11-07 13:38 | ED ---
Upper Extremity HPI - General Source: patient, RN notes reviewed Mode of arrival: ambulatory Limitations: no limitations <Tiffanie Roberts - Last Filed: 11/07/23 13:38> - General Source: RN notes reviewed <Peggy Islas - Last Filed: 11/07/23 16:40> - General Chief Complaint: Extremity Injury, Upper Stated Complaint: R Hand Injury Time Seen by Provider: 11/07/23 13:36 - History of Present Illness Initial Comments: Quick Note: This is a 33-year-old male who presents to the emergency department for right hand pain. States that he punched a dumpster about a week ago and continues to have pain to the right hand, which is worse over the right fourth finger. (Tiffanie Roberts) 33-year-old male presenting to the ER with chief complaint of right hand pain. States he punched a dumpster a week and a half ago and continues to have pain in the knuckle of his right fourth finger. Denies numbness or tingling but states that when he moves his finger he states that his muscles "lock up". He is also complaining of bilateral ear pain for several years. Denies fever, chills, cough, nasal congestion. (Peggy Islas) - Related Data Previous Rx's Medication Instructions Recorded Nicotine 14Mg/24Hr Patch [Habitrol] 1 patch TRANSDERM DAILY 15 Days 10/22/22 #15 patch OLANZapine [ZyPREXA] 10 mg PO HS 30 Days #30 tab 10/22/22 Sertraline [Zoloft] 50 mg PO DAILY 30 Days #30 tab 10/22/22 OLANZapine [ZyPREXA] 10 mg PO HS 30 Days #30 tab 11/28/22 Azithromycin [Zithromax Z Pack] 0 tab PO DIRECTED #6 tab 07/01/23 predniSONE [Deltasone] 20 mg PO BID #6 tab 09/18/23 Pantoprazole [Protonix] 40 mg PO DAILY 14 Days #14 tab 10/25/23 Loratadine-Pseudoeph 10-240 mg 1 tab PO DAILY 30 Days #30 tab 11/07/23 [Claritin-D 24 Hour] Allergies Allergy/AdvReac Type Severity Reaction Status Date / Time codeine Allergy Unknown Verified 10/25/23 15:32 Childhood Review of Systems ROS Other: All systems not noted in ROS Statement are negative. <ThajulisaTiffanie - Last Filed: 11/07/23 13:38> ROS Other: All systems not noted in ROS Statement are negative. <Peggy Islas - Last Filed: 11/07/23 16:40> ROS Statement: Those systems with pertinent positive or pertinent negative responses have been documented in the HPI. Past Medical History Past Medical History: Asthma, Hypertension Additional Past Medical History / Comment(s): glaucoma History of Any Multi-Drug Resistant Organisms: None Reported Past Surgical History: Orthopedic Surgery Past Psychological History: Anxiety, Depression Smoking Status: Vaper Past Alcohol Use History: Occasional Past Drug Use History: Marijuana <JorgejhonnyjulisaTiffanie - Last Filed: 11/07/23 13:38> General Exam Limitations: no limitations <JorgejhonnyjulisaTiffanie - Last Filed: 11/07/23 13:38> General appearance: alert, in no apparent distress Head exam: Present: atraumatic, normocephalic, normal inspection Eye exam: Present: normal appearance, PERRL, EOMI. Absent: scleral icterus, conjunctival injection, periorbital swelling Respiratory exam: Present: normal lung sounds bilaterally. Absent: respiratory distress, wheezes, rales, rhonchi, stridor Cardiovascular Exam: Present: regular rate, normal rhythm, normal heart sounds. Absent: systolic murmur, diastolic murmur, rubs, gallop, clicks Right Forearm Wrist exam: Present: normal inspection, full ROM. Absent: tenderness, swelling Hand Wrist exam: Present: abrasion (Mild abrasion over dorsal aspect of fourth metacarpophalangeal joint. Minimal tenderness. No edema. Full range of motion of metacarpophalangeal joint, DIP joint, and PIP joint. Cap refill less than 2 seconds. Sensation intact.) Vascular: Present: normal capillary refill. Absent: vascular compromise Neurological exam: Present: alert Psychiatric exam: Present: normal affect, normal mood Skin exam: Present: warm, dry, intact, normal color. Absent: rash <Peggy Islas - Last Filed: 11/07/23 16:40> - General Exam Comments Initial Comments: Visual Physical Exam Vital signs reviewed General: Well-appearing, nontoxic, no acute distress. Head: Normocephalic, atraumatic Eyes: PERRLA, EOMI ENT: Airway patent Chest: Nonlabored breathing Skin: No visual rash, normal skin tone Neuro: Alert and oriented 3 Musculoskeletal: No gross abnormalities (Tiffanie Roberts) Course Vital Signs 11/07/23 12:48 Temperature 97.7 F Pulse Rate 71 Respiratory 16 Rate Blood Pressure 119/71 O2 Sat by Pulse 98 Oximetry Medical Decision Making <Tiffanie Roberts - Last Filed: 11/07/23 13:38> <Peggy Islas - Last Filed: 11/07/23 16:40> - Medical Decision Making I performed the QuickNote portion of this chart. Signed Tiffanie Roberts PA-C. (Tiffanie Roberts) Was pt. sent in by a medical professional or institution ([facility], POST ANESTHESIA NURSE, urgent care, hospital, or halfway...) When possible be specific @ -No Did you speak to anyone other than the patient for history (EMS, parent, family, police, friend...)? What history was obtained from this source @ -No Did you review nursing and triage notes (agree or disagree)? Why? @ -I reviewed and agree with nursing and triage notes Were old charts reviewed (outside hosp., previous admission, EMS record, old EKG, old radiological studies, urgent care reports/EKG's, halfway records)? Report findings @ -No old charts were reviewed Differential Diagnosis (chest pain, altered mental status, abdominal pain women, abdominal pain men, vaginal bleeding, weakness, fever, dyspnea, syncope, headache, dizziness, GI bleed, back pain, seizure, CVA, palpatations, mental health, musculoskeletal)? @ -Differential Musculoskeletal Muscular strain, contusion, ligament sprain, fracture, arthritis, septic arthritis, bursitis, cellulitis, muscle spasm, nerve compression, DVT, arterial occlusion, herpes zoster, electrolyte abnormality, tumor.... This is not meant to be in all inclusive list EKG interpreted by me (3pts min.). @ -None X-rays interpreted by me (1pt min.). @ -X-ray of right hand reveals no acute osseous abnormality CT interpreted by me (1pt min.). @ -None done U/S interpreted by me (1pt. min.). @ -None done What testing was considered but not performed or refused? (CT, X-rays, U/S, labs)? Why? @ -None What meds were considered but not given or refused? Why? @ -None Did you discuss the management of the patient with other professionals (professionals i.e. , PA, POST ANESTHESIA NURSE, lab, RT, psych nurse, protective services social worker, cooker chip, teacher, staff weapons officer, field case manager)? Give summary @ -No Was smoking cessation discussed for >3mins.? @ -No Was critical care preformed (if so, how long)? @ -No Were there social determinants of health that impacted care today? How? (Homelessness, low income, unemployed, alcoholism, drug addiction, transportation, low edu. Level, literacy, decrease access to med. care, care home, rehab)? @ -No Was there de-escalation of care discussed even if they declined (Discuss DNR or withdrawal of care, Hospice)? DNR status @ -No What co-morbidities impacted this encounter? (DM, HTN, Smoking, COPD, CAD, Cancer, CVA, ARF, Chemo, Hep., AIDS, mental health diagnosis, sleep apnea, morbid obesity)? @ -None Was patient admitted / discharged? Hospital course, mention meds given and route, prescriptions, significant lab abnormalities, going to OR and other pertinent info. @ -Patient was discharged. Patient was seen and evaluated for right hand injury 1 week ago. Patient is neurovascularly intact. X-ray reveals no osseous abnormality. Discussed diagnosis of right hand strain. Supportive care discussed. Instructed to follow-up with Ortho if symptoms persist. Patient is also complaining of bilateral ear pain for several years. TMs are normal bilaterally with no sign of infection. Advised to use take Claritin once daily and follow-up with his PCP. Case discussed with my attending Dr. Houston. Patient discharged in stable condition. Undiagnosed new problem with uncertain prognosis? @ -No Drug Therapy requiring intensive monitoring for toxicity (Heparin, Nitro, Insulin, Cardizem)? @ -No Were any procedures done? @ -No Diagnosis/symptom? @ -Right hand strain, allergic rhinitis Acute, or Chronic, or Acute on Chronic? @ -Acute Uncomplicated (without systemic symptoms) or Complicated (systemic symptoms)? @ -Uncomplicated Side effects of treatment? @ -No Exacerbation, Progression, or Severe Exacerbation? @ -No Poses a threat to life or bodily function? How? (Chest pain, [place], [place], pneumonia, PE, COPD, DKA, ARF, appy, cholecystitis, CVA, Diverticulitis, Homicidal, Suicidal, threat to staff... and all critical care pts) @ -No (Peggy Islas) Disposition <Tiffanie Roberts - Last Filed: 11/07/23 13:38> Is patient prescribed a controlled substance at d/c from ED?: No Time of Disposition: 15:09 <Peggy Islas - Last Filed: 11/07/23 16:40> Clinical Impression: Strain of right hand Disposition: HOME SELF-CARE Condition: Stable Instructions (If sedation given, give patient instructions): Hand Sprain (ED) Additional Instructions: Follow-up with orthopedics if symptoms persist. Please return to the Emergency Department if symptoms worsen or any other concerns. Prescriptions: Loratadine-Pseudoeph 10-240 mg [Claritin-D 24 Hour] 1 tab PO DAILY 30 Days #30 tab Referrals: None,Stated [Primary Care Provider] - 1-2 days Shai Christianson MD [Medical Doctor] - 1-2 days
--- NOTE | 2023-11-07 14:11 | XR ---
EXAMINATION TYPE: XR hand complete RT DATE OF EXAM: 11/07/2023 1:36 PM CLINICAL INDICATION:Male, 33 years old with history of punched dumpster; H COMPARISON: None TECHNIQUE: XR hand complete RT Frontal, lateral and oblique views were obtained. FINDINGS: Normal alignment of the visualized joints. No acute osseous pathology is identified. No e vidence of soft tissue swelling. No significant degeneration IMPRESSION: No acute osseous pathology.
== END 2023-11-07 15:23 | disposition home or self-care (01) ==
LOC: EC 12:37
DX: S66.911A Strain of unspecified muscle, fascia and tendon at wrist and hand level, right hand, initial encounter (principal); F17.290 Nicotine dependence, other tobacco product, uncomplicated; F12.90 Cannabis use, unspecified, uncomplicated; Z88.5 Allergy status to narcotic agent; W22.8XXA Striking against or struck by other objects, initial encounter
CPT/HCPCS: 99283

== ENCOUNTER 2023-11-10 11:55 | Emergency (ER) | payer OTHER ==
--- NOTE | 2023-11-10 12:33 | ED ---
Anxiety HPI - General Chief Complaint: Anxiety Stated Complaint: SOB,Dizziness,Weakness Time Seen by Provider: 11/10/23 12:08 Source: patient, RN notes reviewed Mode of arrival: ambulatory Limitations: no limitations - History of Present Illness Initial Comments: 33-year-old presents emergency department with chief complaint of anxiety. He states he was on 3 medications for psychiatric issues and he started to wean himself off all of them. He states he feels that he still needs the Zoloft as his anxiety return he denies being suicidal homicidal he states he just feels anxious and does not feel right. He was on Zoloft 50 mg. - Related Data Home Medications: Previous Rx's Medication Instructions Recorded Nicotine 14Mg/24Hr Patch [Habitrol] 1 patch TRANSDERM DAILY 15 Days 10/22/22 #15 patch OLANZapine [ZyPREXA] 10 mg PO HS 30 Days #30 tab 10/22/22 OLANZapine [ZyPREXA] 10 mg PO HS 30 Days #30 tab 11/28/22 Azithromycin [Zithromax Z Pack] 0 tab PO DIRECTED #6 tab 07/01/23 predniSONE [Deltasone] 20 mg PO BID #6 tab 09/18/23 Pantoprazole [Protonix] 40 mg PO DAILY 14 Days #14 tab 10/25/23 Loratadine-Pseudoeph 10-240 mg 1 tab PO DAILY 30 Days #30 tab 11/07/23 [Claritin-D 24 Hour] Sertraline [Zoloft] 50 mg PO DAILY 30 Days #30 tab 11/10/23 Allergies/Adverse Reactions: Allergies Allergy/AdvReac Type Severity Reaction Status Date / Time codeine Allergy Unknown Verified 11/10/23 12:03 Childhood Review of Systems ROS Statement: Those systems with pertinent positive or pertinent negative responses have been documented in the HPI. ROS Other: All systems not noted in ROS Statement are negative. Past Medical History Past Medical History: Asthma, Hypertension Additional Past Medical History / Comment(s): glaucoma History of Any Multi-Drug Resistant Organisms: None Reported Past Surgical History: Orthopedic Surgery Past Psychological History: Anxiety, Depression Smoking Status: Vaper Past Alcohol Use History: Occasional Past Drug Use History: Marijuana General Exam Limitations: no limitations General appearance: alert, in no apparent distress, anxious Head exam: Present: atraumatic, normocephalic, normal inspection Eye exam: Present: normal appearance, PERRL, EOMI. Absent: scleral icterus, conjunctival injection, periorbital swelling ENT exam: Present: normal exam, mucous membranes moist Neck exam: Present: normal inspection, full ROM. Absent: tenderness, meningism us, lymphadenopathy Respiratory exam: Present: normal lung sounds bilaterally. Absent: respiratory distress, wheezes, rales, rhonchi, stridor Cardiovascular Exam: Present: regular rate, normal rhythm, normal heart sounds. Absent: systolic murmur, diastolic murmur, rubs, gallop, clicks Course Vital Signs 11/10/23 11/10/23 11:58 12:52 Temperature 98.4 F 98.2 F Pulse Rate 69 68 Respiratory 16 18 Rate Blood Pressure 132/84 136/79 O2 Sat by Pulse 100 100 Oximetry Medical Decision Making - Medical Decision Making Was pt. sent in by a medical professional or institution (, PA, MANAGER INVENTORY CONTROL, urgent care, hospital, or [facility]...) When possible be specific @ -No Did you speak to anyone other than the patient for history (EMS, parent, family, police, friend...)? What history was obtained from this source @ -No Did you review nursing and triage notes (agree or disagree)? Why? @ -I reviewed and agree with nursing and triage notes Were old charts reviewed (outside hosp., previous admission, EMS record, old EKG, old radiological studies, urgent care reports/EKG's, [facility] records)? Report findings @ -No old charts were reviewed Differential Diagnosis (chest pain, altered mental status, abdominal pain women, abdominal pain men, vaginal bleeding, weakness, fever, dyspnea, syncope, headache, dizziness, GI bleed, back pain, seizure, CVA, palpatations, mental health, musculoskeletal)? @ -Anxiety, depression, medication reaction EKG interpreted by me (3pts min.). @ -None X-rays interpreted by me (1pt min.). @ -None done CT interpreted by me (1pt min.). @ -None done U/S interpreted by me (1pt. min.). @ -None done What testing was considered but not performed or refused? (CT, X-rays, U/S, labs)? Why? @ -None What meds were considered but not given or refused? Why? @ -None Did you discuss the management of the patient with other professionals (professionals i.e. , PA, MANAGER INVENTORY CONTROL, lab, RT, psych nurse, social welfare research worker, billposting supervisor, teacher, credit or loans officer, caser shoe parts)? Give summary @ -No Was smoking cessation discussed for >3mins.? @ -No Was critical care preformed (if so, how long)? @ -No Were there social determinants of health that impacted care today? How? (Homelessness, low income, unemployed, alcoholism, drug addiction, transportation, low edu. Level, literacy, decrease access to med. care, nursing home, rehab)? @ -No Was there de-escalation of care discussed even if they declined (Discuss DNR or withdrawal of care, Hospice)? DNR status @ -No What co-morbidities impacted this encounter? (DM, HTN, Smoking, COPD, CAD, Cancer, CVA, ARF, Chemo, Hep., AIDS, mental health diagnosis, sleep apnea, morbid obesity)? @ -None Was patient admitted / discharged? Hospital course, mention meds given and route, prescriptions, significant lab abnormalities, going to OR and other pertinent info. @ -Discharge patient has acute anxiety, no suicide nation or homicidal region patient restarted on Zoloft. Patient will follow-up with PCP. Undiagnosed new problem with uncertain prognosis? @ -No Drug Therapy requiring intensive monitoring for toxicity (Heparin, Nitro, Insulin, Cardizem)? @ -No Were any procedures done? @ -No Diagnosis/symptom? @ -Anxiety Acute, or Chronic, or Acute on Chronic? @ -Acute Uncomplicated (without systemic symptoms) or Complicated (systemic symptoms)? @ -Uncomplicated Side effects of treatment? @ -No Exacerbation, Progression, or Severe Exacerbation? @ -No Poses a threat to life or bodily function? How? (Chest pain, [place], [place], pneumonia, PE, COPD, DKA, ARF, appy, cholecystitis, CVA, Diverticulitis, Homicidal, Suicidal, threat to staff... and all critical care pts) @ -No Disposition Clinical Impression: Acute anxiety, Medication refill Disposition: HOME SELF-CARE Instructions (If sedation given, give patient instructions): Generalized Anxiety Disorder (ED) Additional Instructions: Please return to the Emergency Department if symptoms worsen or any other concerns. Prescriptions: Sertraline [Zoloft] 50 mg PO DAILY 30 Days #30 tab Is patient prescribed a controlled substance at d/c from ED?: No Referrals: None,Stated [REFERRING] - 1-2 days Time of Disposition: 12:33
[2023-11-10] MEDS: SERTRALINE 50 MG TAB PO STA (12:50)
[2023-11-10 12:53] VITALS: BP 136/79; PULSE 68; RESP 18; TEMP 98.2
== END 2023-11-10 12:54 | disposition home or self-care (01) ==
LOC: EC 11:55
DX: F41.9 Anxiety disorder, unspecified (principal); Z76.0 Encounter for issue of repeat prescription; F17.290 Nicotine dependence, other tobacco product, uncomplicated; F12.90 Cannabis use, unspecified, uncomplicated; Z88.5 Allergy status to narcotic agent
CPT/HCPCS: 99283

== ENCOUNTER 2023-11-10 23:54 | Emergency (ER) | payer OTHER ==
[2023-11-10 23:59] VITALS: TEMP 97.9
--- NOTE | 2023-11-11 00:50 | ED ---
Anxiety HPI - General Chief Complaint: Anxiety Stated Complaint: Anxiety, hole in jaw Time Seen by Provider: 11/11/23 00:07 Source: patient Mode of arrival: ambulatory - History of Present Illness Initial Comments: 33-year-old man presents to the emergency department reporting anxiety. Patient was already seen earlier today. He states that he has been having significant anxiety. He thought it was due to being off of his Zoloft. Patient was prescribed this medication this morning. States that even though he is back on the medications he still feeling extremely anxious. Patient is also on Zyprexa but took himself off. States that his goal was to wean himself off of his medications entirely however because he did stop taking both of these medications he now thinks he is having withdrawal. His primary care doctor was weaning him slowly down off of the Zyprexa. He states he does not want to go back on this medication but would like some other form of anxiety control. Patient does have follow-up coming with his psychiatrist. He denies any suicidal or homicidal ideations. - Related Data Home Medications: Previous Rx's Medication Instructions Recorded Nicotine 14Mg/24Hr Patch [Habitrol] 1 patch TRANSDERM DAILY 15 Days 10/22/22 #15 patch OLANZapine [ZyPREXA] 10 mg PO HS 30 Days #30 tab 10/22/22 OLANZapine [ZyPREXA] 10 mg PO HS 30 Days #30 tab 11/28/22 Azithromycin [Zithromax Z Pack] 0 tab PO DIRECTED #6 tab 07/01/23 predniSONE [Deltasone] 20 mg PO BID #6 tab 09/18/23 Pantoprazole [Protonix] 40 mg PO DAILY 14 Days #14 tab 10/25/23 Loratadine-Pseudoeph 10-240 mg 1 tab PO DAILY 30 Days #30 tab 11/07/23 [Claritin-D 24 Hour] Sertraline [Zoloft] 50 mg PO DAILY 30 Days #30 tab 11/10/23 clonazePAM [KlonoPIN] 0.5 mg PO TID PRN 3 Days #9 tablet 11/11/23 Allergies/Adverse Reactions: Allergies Allergy/AdvReac Type Severity Reaction Status Date / Time codeine Allergy Unknown Verified 11/13/23 11:28 Childhood Review of Systems ROS Statement: Those systems with pertinent positive or pertinent negative responses have been documented in the HPI. ROS Other: All systems not noted in ROS Statement are negative. Past Medical History Past Medical History: Asthma, Hypertension Additional Past Medical History / Comment(s): glaucoma History of Any Multi-Drug Resistant Organisms: None Reported Past Surgical History: Orthopedic Surgery Past Psychological History: Anxiety, Depression Smoking Status: Vaper Past Alcohol Use History: Occasional Past Drug Use History: Marijuana General Exam Limitations: no limitations General appearance: alert, in no apparent distress Head exam: Present: atraumatic, normocephalic, normal inspection Eye exam: Present: normal appearance, PERRL, EOMI. Absent: scleral icterus, conjunctival injection, periorbital swelling ENT exam: Present: normal exam, mucous membranes moist Neck exam: Present: normal inspection. Absent: tenderness, meningismus, lymphadenopathy Respiratory exam: Present: normal lung sounds bilaterally. Absent: respiratory distress, wheezes, rales, rhonchi, stridor Cardiovascular Exam: Present: regular rate, normal rhythm, normal heart sounds. Absent: systolic murmur, diastolic murmur, rubs, gallop, clicks GI/Abdominal exam: Present: soft, normal bowel sounds. Absent: distended, tenderness, guarding, rebound, rigid Extremities exam: Present: normal inspection, full ROM, normal capillary refill. Absent: tenderness, pedal edema, joint swelling, calf tenderness Back exam: Present: normal inspection Neurological exam: Present: alert, oriented X3, CN II-XII intact Psychiatric exam: Present: normal affect, normal mood Skin exam: Present: warm, dry, intact, normal color. Absent: rash Course Vital Signs 11/10/23 11/11/23 23:56 01:06 Temperature 97.9 F 97.9 F Pulse Rate 92 86 Respiratory 12 14 Rate Blood Pressure 157/75 141/73 O2 Sat by Pulse 99 99 Oximetry Medical Decision Making - Medical Decision Making Was pt. sent in by a medical professional or institution (, PA, FLOW COORDINATOR, urgent care, hospital, or retirement...) When possible be specific @ -No Did you speak to anyone other than the patient for history (EMS, parent, family, police, friend...)? What history was obtained from this source @ -No Did you review nursing and triage notes (agree or disagree)? Why? @ -I reviewed and agree with nursing and triage notes Were old charts reviewed (outside hosp., previous admission, EMS record, old EKG, old radiological studies, urgent care reports/EKG's, retirement records)? Report findings @ -I reviewed ED visit from earlier today where patient was prescribed Zoloft Differential Diagnosis (chest pain, altered mental status, abdominal pain women, abdominal pain men, vaginal bleeding, weakness, fever, dyspnea, syncope, headache, dizziness, GI bleed, back pain, seizure, CVA, palpatations, mental health, musculoskeletal)? @ -Differential Mental Health Depression, anxiety, bipolar, psychosis, schizophrenia, borderline personality, situational depression, adjustment disorder, behavioral disorder, brain tumor, malingering, substance abuse, encephalopathy, medication reaction, dementia, hypothyroidism, degenerative neurologic disorder, lupus.... This is not meant to be all-inclusive list EKG interpreted by me (3pts min.). @-not done X-rays interpreted by me (1pt min.). @ -None done CT interpreted by me (1pt min.). @ -None done U/S interpreted by me (1pt. min.). @ -None done What testing was considered but not performed or refused? (CT, X-rays, U/S, labs)? Why? @ -None What meds were considered but not given or refused? Why? @ -None Did you discuss the management of the patient with other professionals (professionals i.e. , PA, FLOW COORDINATOR, lab, RT, psych nurse, social science research assistant, pitch gatherer, teacher, aeronautical engineering officer, caser up)? Give summary @ -No Was smoking cessation discussed for >3mins.? @ -No Was critical care preformed (if so, how long)? @ -No Were there social determinants of health that impacted care today? How? (Homelessness, low income, unemployed, alcoholism, drug addiction, transportation, low edu. Level, literacy, decrease access to med. care, correction, rehab)? @ -No Was there de-escalation of care discussed even if they declined (Discuss DNR or withdrawal of care, Hospice)? DNR status @ -No What co-morbidities impacted this encounter? (DM, HTN, Smoking, COPD, CAD, Cancer, CVA, ARF, Chemo, Hep., AIDS, mental health diagnosis, sleep apnea, morbid obesity)? @ -Anxiety Was patient admitted / discharged? Hospital course, mention meds given and route, prescriptions, significant lab abnormalities, going to OR and other pertinent info. @ -Upon arrival patient seen and evaluated in room 31. Thorough history and physical exam was performed. Patient requesting additional medication for anxiety but does not want to go back on his Zyprexa. At this time the patient will be given a short course of Klonopin. Instructed to take the medications only as needed in extreme situations. He needs to follow-up with a psychiatrist to manage his anxiety and return for any new or worsening symptoms. Patient agreeable to plan was discharged in stable condition Undiagnosed new problem with uncertain prognosis? @ -No Drug Therapy requiring intensive monitoring for toxicity (Heparin, Nitro, Insulin, Cardizem)? @ -No Were any procedures done? @ -No Diagnosis/symptom? @ -Acute anxiety attack Acute, or Chronic, or Acute on Chronic? @ -Acute on chronic Uncomplicated (without systemic symptoms) or Complicated (systemic symptoms)? @ -Complicated Side effects of treatment? @ -No Exacerbation, Progression, or Severe Exacerbation? @ -No Poses a threat to life or bodily function? How? (Chest pain, [place], [place], pneumonia, PE, COPD, DKA, ARF, appy, cholecystitis, CVA, Diverticulitis, Homicidal, Suicidal, threat to staff... and all critical care pts) @ -No Disposition Clinical Impression: Acute anxiety Disposition: HOME SELF-CARE Condition: Stable Instructions (If sedation given, give patient instructions): Generalized Anxiety Disorder (ED) Additional Instructions: Take the medication only as absolutely needed. Follow-up with your psychiatrist to discuss further treatment options. Continue taking the Zoloft as instructed. Return for any new or worsening symptoms Prescriptions: clonazePAM [KlonoPIN] 0.5 mg PO TID PRN 3 Days #9 tablet PRN Reason: Anxiety Is patient prescribed a controlled substance at d/c from ED?: Yes When asked, does pt state using other controlled substances?: No If prescribed controlled substance>3 days was MAPS reviewed?: Prescribed <3 Days Referrals: None,Stated [Primary Care Provider] - 1-2 days Time of Disposition: 00:49
[2023-11-11] MEDS: clonazePAM 0.5 MG TAB PO STA (01:04)
[2023-11-11 01:08] VITALS: BP 141/73; PULSE 86; RESP 14
== END 2023-11-11 01:07 | disposition home or self-care (01) ==
LOC: EC 23:54
DX: F41.9 Anxiety disorder, unspecified (principal); F17.290 Nicotine dependence, other tobacco product, uncomplicated; Z88.5 Allergy status to narcotic agent
CPT/HCPCS: 99283

== ENCOUNTER 2023-11-12 08:41 | Emergency (ER) | payer OTHER ==
[2023-11-12 08:48] VITALS: RESP 16
--- NOTE | 2023-11-12 09:06 | ED ---
SOB HPI - General Chief Complaint: Shortness of Breath Stated Complaint: SOB Time Seen by Provider: 11/12/23 09:02 Source: patient, RN notes reviewed Mode of arrival: ambulatory Limitations: no limitations - History of Present Illness Initial Comments: 33-year-old male presented to the ER with a chief complaint of shortness of breath. Past medical history significant of asthma. Patient states he woke up this morning and was experiencing mild shortness of breath. He states he felt like he could not catch his breath. This sensation has since resolved. 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 He denies any pain, exertional dyspnea, peripheral edema, calf tenderness, history of blood clots. He is a current every day smoker. He denies any fevers, chills, night sweats, abdominal pain. - Related Data Previous Rx's Medication Instructions Recorded Nicotine 14Mg/24Hr Patch [Habitrol] 1 patch TRANSDERM DAILY 15 Days 10/22/22 #15 patch OLANZapine [ZyPREXA] 10 mg PO HS 30 Days #30 tab 10/22/22 OLANZapine [ZyPREXA] 10 mg PO HS 30 Days #30 tab 11/28/22 Azithromycin [Zithromax Z Pack] 0 tab PO DIRECTED #6 tab 07/01/23 predniSONE [Deltasone] 20 mg PO BID #6 tab 09/18/23 Pantoprazole [Protonix] 40 mg PO DAILY 14 Days #14 tab 10/25/23 Loratadine-Pseudoeph 10-240 mg 1 tab PO DAILY 30 Days #30 tab 11/07/23 [Claritin-D 24 Hour] Sertraline [Zoloft] 50 mg PO DAILY 30 Days #30 tab 11/10/23 clonazePAM [KlonoPIN] 0.5 mg PO TID PRN 3 Days #9 tablet 11/11/23 Allergies Allergy/AdvReac Type Severity Reaction Status Date / Time codeine Allergy Unknown Verified 11/12/23 08:46 Childhood Review of Systems ROS Statement: Those systems with pertinent positive or pertinent negative responses have been documented in the HPI. ROS Other: All systems not noted in ROS Statement are negative. Past Medical History Past Medical History: Asthma, Hypertension Additional Past Medical History / Comment(s): glaucoma History of Any Multi-Drug Resistant Organisms: None Reported Past Surgical History: Orthopedic Surgery Past Psychological History: Anxiety, Depression Smoking Status: Vaper Past Alcohol Use History: Occasional Past Drug Use History: Marijuana General Exam Limitations: no limitations General appearance: alert, in no apparent distress ENT exam: Present: normal exam, normal oropharynx, mucous membranes moist Respiratory exam: Present: normal lung sounds bilaterally. Absent: respiratory distress, wheezes, rales, rhonchi, stridor Cardiovascular Exam: Present: regular rate, normal rhythm, normal heart sounds. Absent: systolic murmur, diastolic murmur, rubs, gallop, clicks Extremities exam: Present: normal inspection, full ROM, normal capillary refill. Absent: tenderness, pedal edema, joint swelling, calf tenderness Skin exam: Present: warm, dry, intact, normal color. Absent: rash Course Vital Signs 11/12/23 11/12/23 11/12/23 08:46 09:19 10:57 Temperature 97.8 F 98 F Pulse Rate 86 81 Respiratory 16 16 16 Rate Blood Pressure 154/68 138/79 O2 Sat by Pulse 100 100 Oximetry Medical Decision Making - Medical Decision Making Was pt. sent in by a medical professional or institution (, PA, SCIENTIFIC DIRECTOR, urgent care, hospital, or usp...) When possible be specific @ -No Did you speak to anyone other than the patient for history (EMS, parent, family, police, friend...)? What history was obtained from this source @ -No Did you review nursing and triage notes (agree or disagree)? Why? @ -I reviewed and agree with nursing and triage notes Were old charts reviewed (outside hosp., previous admission, EMS record, old EKG, old radiological studies, urgent care reports/EKG's, usp records)? Report findings @ -No old charts were reviewed Differential Diagnosis (chest pain, altered mental status, abdominal pain women, abdominal pain men, vaginal bleeding, weakness, fever, dyspnea, syncope, headache, dizziness, GI bleed, back pain, seizure, CVA, palpatations, mental health, musculoskeletal)? @ -Differential Dyspnea: Coronary syndrome, arrhythmia, tamponade, asthma, COPD, pulmonary embolism, pneumonia, pneumothorax, pulmonary effusion, anaphylaxis, diabetic ketoacidosis, flailed chest, pulmonary contusion, diaphragmatic rupture, anemia, neuromuscular, this is not meant to be an all- inclusive list. EKG interpreted by me (3pts min.). @ -As above X-rays interpreted by me (1pt min.). @ -Chest x-ray interpreted by me negative for acute cardiopulmonary process. CT interpreted by me (1pt min.). @ -None done U/S interpreted by me (1pt. min.). @ -None done What testing was considered but not performed or refused? (CT, X-rays, U/S, labs)? Why? @ -None What meds were considered but not given or refused? Why? @ -None Did you discuss the management of the patient with other professionals (professionals i.e. Dr., PA, SCIENTIFIC DIRECTOR, lab, RT, psych nurse, social media content specialist, director reactor projects, teacher, aoc director combat plans officer, human services case manager)? Give summary @ -No Was smoking cessation discussed for >3mins.? @ -I discussed smoking cessation for greater than 3 minutes. The risk of smoking were discussed with the patient including but not limited to risks of cancer, stroke, coronary artery disease and COPD. Also discussed with patient were multiple methods of quitting smoking. Lastly we discussed the financial cost of smoking. Was critical care preformed (if so, how long)? @ -No Were there social determinants of health that impacted care today? How? (Homelessness, low income, unemployed, alcoholism, drug addiction, transportation, low edu. Level, literacy, decrease access to med. care, custodial, rehab)? @ -Patient has not been following up with PCP as he has been having difficulties with insurance. Was there de-escalation of care discussed even if they declined (Discuss DNR or withdrawal of care, Hospice)? DNR status @ -No What co-morbidities impacted this encounter? (DM, HTN, Smoking, COPD, CAD, Cancer, CVA, ARF, Chemo, Hep., AIDS, mental health diagnosis, sleep apnea, morbid obesity)? @ -Anxiety Was patient admitted / discharged? Hospital course, mention meds given and route, prescriptions, significant lab abnormalities, going to OR and other pertinent info. @ -Discharge. 33-year-old male presented to the ER with chief complaint shortness of breath. History and physical exam completed. Vitals stable. Patient in no signs of acute distress and nontoxic-appearing. Lung sounds clear to station bilaterally. Normal heart sounds. No peripheral edema or calf tenderness. EKG showing a normal sinus rhythm with no acute ST segment or T wave abnormalities. Chest x-ray interpreted by me negative for acute cardiopulmonary process. Upon reevaluation, patient resting comfortably in exam room in no signs of acute distress. Patient reporting improvement of symptoms as he took his anxiety medication prior to arrival. Patient eager for discharge at this time. Symptoms believed to be related to anxiety. I advised close follow-up with PCP. Strict return parameters discussed. Patient discharged in stable condition. Patient verbally expressed understanding and agreement with care plan. Case discussed with ED attending, Dr. Houston. Undiagnosed new problem with uncertain prognosis? @ -No Drug Therapy requiring intensive monitoring for toxicity (Heparin, Nitro, Insulin, Cardizem)? @ -No Were any procedures done? @ -No Diagnosis/symptom? @ -Anxiety/nicotine dependence Acute, or Chronic, or Acute on Chronic? @ -Acute Uncomplicated (without systemic symptoms) or Complicated (systemic symptoms)? @ -Uncomplicated Side effects of treatment? @ -No Exacerbation, Progression, or Severe Exacerbation? @ -No Poses a threat to life or bodily function? How? (Chest pain, [place], [place], pneumonia, PE, COPD, DKA, ARF, appy, cholecystitis, CVA, Diverticulitis, Homicidal, Suicidal, threat to staff... and all critical care pts) @ -No - EKG Data -: EKG Interpreted by Me EKG Comments: EKG taken at 9: 12 showing a normal sinus rhythm with no acute ST segment or T wave abnormalities. Normal axis. Ventricular rate 66, NM interval 151, QRS duration 89, QT/QTc 393/407. - Radiology Data Radiology results: report reviewed, image reviewed Disposition Clinical Impression: Nicotine dependence, Anxiety Disposition: HOME SELF-CARE Condition: Stable Instructions (If sedation given, give patient instructions): How to Stop Smoking (ED), Generalized Anxiety Disorder (ED) Additional Instructions: Please follow-up with primary care physician. Discontinue smoking. Return to the ER for new or worsening concerns. Is patient prescribed a controlled substance at d/c from ED?: No Referrals: Roshan Choudhary MD [Primary Care Provider] - 1-2 days Forms: Area PCPs, Outpatient Counseling, Outpatient Therapy List Time of Disposition: 10:45
--- NOTE | 2023-11-12 10:36 | XR ---
EXAMINATION TYPE: XR chest 2V DATE OF EXAM: 11/12/2023 COMPARISON: 09/18/2023 INDICATION: Short of breath TECHNIQUE: Frontal and lateral views of the chest are obtained. FINDINGS: The heart size is normal. The pulmonary vasculature is normal. The lungs are clear. IMPRESSION: 1. No acute pulmonary process.
[2023-11-12 10:59] VITALS: BP 138/79; PULSE 81; TEMP 98
== END 2023-11-12 11:02 | disposition home or self-care (01) ==
LOC: EC 08:41
DX: F17.290 Nicotine dependence, other tobacco product, uncomplicated (principal); F41.9 Anxiety disorder, unspecified; F12.90 Cannabis use, unspecified, uncomplicated; Z88.5 Allergy status to narcotic agent
CPT/HCPCS: 71046; 93005; 99285; 99406

== ENCOUNTER 2023-11-13 11:24 | Emergency (ER) | payer OTHER ==
[2023-11-13 11:28] VITALS: BP 135/75; PULSE 67; RESP 18; TEMP 97.4
== END 2023-11-13 12:00 | disposition left against medical advice (07) ==
LOC: EC 11:24
DX: Z53.21 Procedure and treatment not carried out due to patient leaving prior to being seen by health care provider (principal)
CPT/HCPCS: 99499

== ENCOUNTER 2023-12-16 22:03 | Emergency (ER) | payer OTHER | END 2023-12-16 23:04 | disposition left against medical advice (07) | LOC: EC 22:03 | CPT/HCPCS: 99499 ==

== ENCOUNTER 2023-12-20 08:52 | Emergency (ER) | payer OTHER | END 2023-12-20 09:27 | disposition home or self-care (01) | LOC: EC 08:52 | DX: H60.91 Unspecified otitis externa, right ear (principal) | CPT/HCPCS: 99283 ==

== ENCOUNTER 2023-12-21 16:29 | Emergency (ER) | payer OTHER ==
[2023-12-21] MEDS ORDERED: LORazepam 2 MG/ML INJ ONE (18:40)
[2023-12-21] MEDS ORDERED: SODIUM CHLORIDE 0.9% 1,000 ML BAG ONE (18:45)
--- NOTE | 2024-01-19 11:00 | XR ---
Patient: Waldemar Winchester Ordering Physician: Unknown, Unknown ID: [id number] Phone, Pager: Phone: N/A Pager: N/A : 1990 Age/Gender: 33Y, M Primary Location: N/A Procedure: XR chest 2V Study Date: 12/21/2023 7:27:19 PM EXAMINATION TYPE: XR chest 2V DATE OF EXAM: 12/21/2023 7:42 PM CLINICAL INDICATION: Shortness of breath COMPARISON: None TECHNIQUE: XR chest 2V Frontal view of the chest. FINDINGS: Lungs/Pleura: There is no evidence of pleural effusion, focal consolidation, or pneumothorax. Pulmonary vascularity: Unremarkable. Heart/mediastinum: Cardiomediastinal silhouette is unremarkable. Musculoskeletal: No acute osseous pathology. IMPRESSION: No acute cardiopulmonary disease/process.
== END 2023-12-21 21:15 | disposition home or self-care (01) ==
LOC: EC 16:29
DX: R06.00 Dyspnea, unspecified (principal)
CPT/HCPCS: 71046; 93005; 99285

== ENCOUNTER → 2023-12-29 | Outpatient (CLI) | payer OTHER | END | disposition home or self-care (01) | LOC: LABWHC1 12:47 | PROVIDERS: ATTEND Family Medicine | DX: B19.20 Unspecified viral hepatitis C without hepatic coma (principal) | CPT/HCPCS: 36415; 86803; 87902 ==

== ENCOUNTER 2023-12-31 13:40 | Emergency (ER) | payer OTHER ==
[2023-12-31 14:08] VITALS: BP 123/71; PULSE 63; RESP 18
--- NOTE | 2023-12-31 14:25 | ED ---
Extremity Problem HPI - General Chief complaint: Recheck/Abnormal Lab/Rx Stated complaint: hip/back pain Source: patient, RN notes reviewed, old records reviewed Limitations: no limitations - History of Present Illness Initial comments: [id number] male to ER for evaluation of hip pain bilateral hip pain history of arthritis history of worsening hip pain and arthritis for weeks now. Patient has no traumatic injury no nausea vomiting no diarrhea no fevers, no history of bowel or bladder patient has no neurological deficit able to ambulate - Related Data Previous Rx's Medication Instructions Recorded Nicotine 14Mg/24Hr Patch [Habitrol] 1 patch TRANSDERM DAILY 15 Days 10/22/22 #15 patch OLANZapine [ZyPREXA] 10 mg PO HS 30 Days #30 tab 10/22/22 OLANZapine [ZyPREXA] 10 mg PO HS 30 Days #30 tab 11/28/22 Azithromycin [Zithromax Z Pack] 0 tab PO DIRECTED #6 tab 07/01/23 predniSONE [Deltasone] 20 mg PO BID #6 tab 09/18/23 Pantoprazole [Protonix] 40 mg PO DAILY 14 Days #14 tab 10/25/23 Loratadine-Pseudoeph 10-240 mg 1 tab PO DAILY 30 Days #30 tab 11/07/23 [Claritin-D 24 Hour] Sertraline [Zoloft] 50 mg PO DAILY 30 Days #30 tab 11/10/23 clonazePAM [KlonoPIN] 0.5 mg PO TID PRN 3 Days #9 tablet 11/11/23 Allergies Allergy/AdvReac Type Severity Reaction Status Date / Time codeine Allergy Unknown Verified 12/31/23 14:08 Childhood Review of Systems ROS Statement: Those systems with pertinent positive or pertinent negative responses have been documented in the HPI. ROS Other: All systems not noted in ROS Statement are negative. Past Medical History Past Medical History: Asthma, Hypertension Additional Past Medical History / Comment(s): glaucoma History of Any Multi-Drug Resistant Organisms: None Reported Past Surgical History: Orthopedic Surgery Past Psychological History: Anxiety, Depression Smoking Status: Vaper Past Alcohol Use History: Occasional Past Drug Use History: Marijuana General Exam Limitations: no limitations General appearance: alert, in no apparent distress Head exam: Present: atraumatic, normocephalic, normal inspection Eye exam: Present: normal appearance, PERRL, EOMI. Absent: scleral icterus, conjunctival injection, periorbital swelling ENT exam: Present: normal exam, mucous membranes moist Neck exam: Present: normal inspection. Absent: tenderness, meningismus, lymphadenopathy Respiratory exam: Present: normal lung sounds bilaterally. Absent: respiratory distress, wheezes, rales, rhonchi, stridor Cardiovascular Exam: Present: regular rate, normal rhythm, normal heart sounds. Absent: systolic murmur, diastolic murmur, rubs, gallop, clicks GI/Abdominal exam: Present: soft, normal bowel sounds. Absent: distended, tenderness, guarding, rebound, rigid Extremities exam: Present: normal inspection, full ROM, normal capillary refill. Absent: tenderness, pedal edema, joint swelling, calf tenderness Back exam: Present: normal inspection Neurological exam: Present: alert, oriented X3, CN II-XII intact Psychiatric exam: Present: normal affect, normal mood Skin exam: Present: warm, dry, intact, normal color. Absent: rash Course Vital Signs 12/31/23 14:06 Pulse Rate 63 Respiratory 18 Rate Blood Pressure 123/71 O2 Sat by Pulse 98 Oximetry - Reevaluation(s) Reevaluation #1: 12/31/23 12:54 QN completed by myself Dr. Charles Disposition Clinical Impression: Normal exam Disposition: LEFT AGAINST MEDICAL ADVICE Condition: Fair Is patient prescribed a controlled substance at d/c from ED?: No Referrals: Roshan Choudhary MD [Primary Care Provider] - 1-2 days
--- NOTE | 2023-12-31 15:07 | XR ---
EXAMINATION TYPE: XR Hip Bilateral and AP pelvis DATE OF EXAM: 12/31/2023 3:01 PM INDICATION: Patient age:Male; 33 years old; Reason for study: pain; PHH. COMPARISON: Pelvic radiograph 09/30/2017 TECHNIQUE: Both hips and pelvis were examined in the frontal and lateral projections and a AP pelvis. FINDINGS: No evidence of any acute osseous pathology, joint dislocation, or soft tissue swelling. Ramiro ateral punctate hip labral calcifications. IMPRESSION: 1. No acute osseous pathology. 2. Nonspecific bilateral punctate hip labral calcifications.
== END 2023-12-31 16:52 | disposition left against medical advice (07) ==
LOC: EC 13:40
CPT/HCPCS: 73521; 99283

== ENCOUNTER → 2024-05-30 | Outpatient (CLI) | payer OTHER ==
--- NOTE | 2024-05-30 10:18 | US ---
EXAMINATION TYPE: US abdomen complete DATE OF EXAM: 05/30/2024 COMPARISON: NONE CLINICAL INDICATION: Male, 34 years old with history of R10.9 ABD PAIN; abd pain on and off after hep C treatment TECHNIQUE: Grayscale and color Doppler imaging of the abdomen was performed. FINDINGS: EXAM MEASUREMENTS: Liver Length: 13.2 cm Gallbladder Wall: 0.15 cm CBD: 0.28 cm, color Doppler imaging was utilized to isolate the common bile duct for measurement. Spleen: 11.1 cm Right Kidney: 11.6 x 4.5 x 3.6 cm Left Kidney: 10.8 x 5.4 x 4.7 cm STAND GRINDER NOTES: Pancreas: wnl Liver: wnl, no dilated ducts, masses or cysts. Gallbladder: wnl Evidence for sonographic Sandra's sign: No CBD: wnl Spleen: wnl Right Kidney: wnl, No hydronephrosis, calculi or masses seen Left Kidney: wnl, No hydronephrosis, calculi or masses seen Upper IVC: wnl Abd Aorta: wnl The liver is homogenous. Noncirrhotic morphology. No focal lesion identified. The intrahepatic portio n of the IVC and proximal abdominal aorta are within normal limits. There is no evidence of cholelit hiasis. Common bile duct is unremarkable. The visualized portions of the pancreas are homogenous. The spleen is unremarkable. Kidneys are symmetric and free of hydronephrosis. No renal lesions are seen. IMPRESSION: 1. No ultrasound evidence for acute abdominal process. 2. Noncirrhotic morphology of the liver without focal lesion. [facility], , 05/30/2024 10:16 AM
[2024-05-30 15:23] LABS: Basophils # (A) 0.04 X 10*3/uL (0.00-0.10); Basophils % (A) 0.5 %; Eosinophils # (A) 0.26 X 10*3/uL (0.04-0.35); Eosinophils % (A) 3.2 %; HCT 48.1 % (39.6-50.0); HGB 15.9 g/dL (13.0-17.0); Lymphocytes # (A) 1.83 X 10*3/uL (0.90-5.00); Lymphocytes % (A) 22.6 %; MCH 26.8 pg (27.0-32.0); MCHC 33.1 g/dL (32.0-37.0); Mean Platelet Volume 9.6 FL (9.5-12.2); Monocytes # (A) 0.44 X 10*3/uL (0.20-1.00); Monocytes % (A) 5.4 %; NRBC Per 100 WBC 0 X 10*3/uL (0.00-0.01); Neutrophils # (A) 5.51 X 10*3/uL (1.80-7.70); Neutrophils % (A) 67.9 %; Platelet Count 235 X 10*3/uL (140-440); RBC 5.94 X 10*6/uL (4.40-5.60); RDW 13.1 % (11.5-14.5); WBC 8.11 X 10*3/uL (4.50-10.00)
[2024-05-30 15:28] LABS: ALT 13 U/L (10-49); AST 21 U/L (14-35); Albumin/Globulin Ratio 2.08 Ratio (1.60-3.17); Alkaline Phosphatase 67 U/L (41-126); BUN/Creat Ratio 14.11 Ratio (12.00-20.00); Blood Urea Nitrogen 12.7 mg/dL (9.0-27.0); Calcium 9.9 mg/dL (8.7-10.3); Carbon Dioxide 23.3 mmol/L (21.6-31.8); Chloride 110 mmol/L (96-109); Globulin 2.4 g/dL (1.6-3.3); Glucose 84 mg/dL (70-110); Potassium 4.2 mmol/L (3.5-5.5); Sodium 147 mmol/L (135-145); Total Protein 7.4 g/dL (6.2-8.2)
[2024-05-30 16:22] LABS: Alpha Fetoprotein, Tumor Mkr <3.00 ng/mL (0.00-7.90)
== END | disposition home or self-care (01) ==
LOC: RADUSWWP 09:38
PROVIDERS: ATTEND Internal Medicine Gastroenterology
DX: R10.9 Unspecified abdominal pain (principal); B18.2 Chronic viral hepatitis C
CPT/HCPCS: 76700; 80053; 81596; 82105; 85025; 87522

== ENCOUNTER 2024-06-03 10:14 | Emergency (ER) | payer OTHER ==
--- NOTE | 2024-06-03 11:17 | ED ---
General Adult HPI - General Chief complaint: Upper Respiratory Infection Stated complaint: Cough,VIRGILIO Time Seen by Provider: 06/03/24 11:06 Source: patient, RN notes reviewed Mode of arrival: ambulatory Limitations: no limitations - History of Present Illness Initial comments: This is a 34-year-old male with history of asthma [facility] for upper respiratory infection symptoms. He states that over the past few days he has been experiencing congestion, postnasal drip, cough, body aches, bilateral ear pressure. States that multiple family members at home have been having similar symptoms. Endorses chills with no reported fevers. Endorses mild difficulty in breathing when he has coughing episodes. - Related Data Previous Rx's Medication Instructions Recorded Nicotine 14Mg/24Hr Patch [Habitrol] 1 patch TRANSDERM DAILY 15 Days 10/22/22 #15 patch OLANZapine [ZyPREXA] 10 mg PO HS 30 Days #30 tab 10/22/22 OLANZapine [ZyPREXA] 10 mg PO HS 30 Days #30 tab 11/28/22 Azithromycin [Zithromax Z Pack] 0 tab PO DIRECTED #6 tab 07/01/23 predniSONE [Deltasone] 20 mg PO BID #6 tab 09/18/23 Pantoprazole [Protonix] 40 mg PO DAILY 14 Days #14 tab 10/25/23 Loratadine-Pseudoeph 10-240 mg 1 tab PO DAILY 30 Days #30 tab 11/07/23 [Claritin-D 24 Hour] Sertraline [Zoloft] 50 mg PO DAILY 30 Days #30 tab 11/10/23 clonazePAM [KlonoPIN] 0.5 mg PO TID PRN 3 Days #9 tablet 11/11/23 clonazePAM [KlonoPIN] 0.5 mg PO TID 3 Days #9 tablet 03/27/24 Allergies Allergy/AdvReac Type Severity Reaction Status Date / Time No Known Allergies Allergy Verified 06/03/24 11:05 Review of Systems ROS Statement: Those systems with pertinent positive or pertinent negative responses have been documented in the HPI. ROS Other: All systems not noted in ROS Statement are negative. Past Medical History Past Medical History: Asthma, Hypertension, Unable to Obtain Additional Past Medical History / Comment(s): glaucoma History of Any Multi-Drug Resistant Organisms: None Reported Past Surgical History: Orthopedic Surgery Past Psychological History: Anxiety, Depression, Panic Disorder, PTSD Smoking Status: Current every day smoker Past Alcohol Use History: None Reported, Occasional Past Drug Use History: None Reported General Exam Limitations: no limitations General appearance: alert, in no apparent distress ENT exam: Present: normal exam, mucous membranes moist Neck exam: Present: normal inspection. Absent: tenderness, meningismus, lym phadenopathy Respiratory exam: Present: normal lung sounds bilaterally. Absent: respiratory distress, wheezes, rales, rhonchi, stridor Cardiovascular Exam: Present: regular rate, normal rhythm, normal heart sounds. Absent: systolic murmur, diastolic murmur, rubs, gallop, clicks GI/Abdominal exam: Present: soft, normal bowel sounds. Absent: distended, tenderness, guarding, rebound, rigid Extremities exam: Present: normal inspection, full ROM, normal capillary refill. Absent: tenderness, pedal edema, joint swelling, calf tenderness Back exam: Present: normal inspection Skin exam: Present: warm, dry, intact, normal color. Absent: rash Course Vital Signs 06/03/24 06/03/24 06/03/24 11:02 12:34 12:38 Temperature 98.1 F 98.2 F Pulse Rate 78 63 70 Respiratory 18 12 17 Rate Blood Pressure 134/72 128/69 O2 Sat by Pulse 98 99 Oximetry Medical Decision Making - Medical Decision Making Was pt. sent in by a medical professional or institution (MARK Royal, STORAGE FACILITY RENTAL CLERK, urgent care, hospital, or long term...) When possible be specific @ -No Did you speak to anyone other than the patient for history (EMS, parent, family, police, friend...)? What history was obtained from this source @ -No Did you review nursing and triage notes (agree or disagree)? Why? @ -I reviewed and agree with nursing and triage notes Were old charts reviewed (outside hosp., previous admission, EMS record, old EKG, old radiological studies, urgent care reports/EKG's, long term records)? Report findings @ -No old charts were reviewed Differential Diagnosis (chest pain, altered mental status, abdominal pain women, abdominal pain men, vaginal bleeding, weakness, fever, dyspnea, syncope, headache, dizziness, GI bleed, back pain, seizure, CVA, palpatations, mental health, musculoskeletal)? @ -COVID 19, RSV, influenza, pneumonia, acute bronchitis, URI, this list is not all inclusive EKG interpreted by me (3pts min.). @ -none X-rays interpreted by me (1pt min.). @ -Chest x-ray no acute cardiopulmonary process or disease CT interpreted by me (1pt min.). @ -None done U/S interpreted by me (1pt. min.). @ -None done What testing was considered but not performed or refused? (CT, X-rays, U/S, labs)? Why? @ -None What meds were considered but not given or refused? Why? @ -None Did you discuss the management of the patient with other professionals (professionals i.e. Dr., PA, STORAGE FACILITY RENTAL CLERK, lab, RT, psych nurse, social services coordinator, technology trainer, teacher, foreign service officer, field nurse case manager)? Give summary @ -No Was smoking cessation discussed for >3mins.? @ -No Was critical care preformed (if so, how long)? @ -No Were there social determinants of health that impacted care today? How? (Homelessness, low income, unemployed, alcoholism, drug addiction, transportation, low edu. Level, literacy, decrease access to med. care, snf, rehab)? @ -No Was there de-escalation of care discussed even if they declined (Discuss DNR or withdrawal of care, Hospice)? DNR status @ -No What co-morbidities impacted this encounter? (DM, HTN, Smoking, COPD, CAD, Cancer, CVA, ARF, Chemo, Hep., AIDS, mental health diagnosis, sleep apnea, morbid obesity)? @ -None Was patient admitted / discharged? Hospital course, mention meds given and route, prescriptions, significant lab abnormalities, going to OR and other pertinent info. @ -Discharge. 34-year-old male presenting with URI symptoms. Vitals are stable. Viral testing negative. Chest x-ray is unremarkable. Discussion with patient supportive treatment at home such as using Tylenol Motrin for body aches and warm humidified air. Discussed with Dr. Shepherd Undiagnosed new problem with uncertain prognosis? @ -No Drug Therapy requiring intensive monitoring for toxicity (Heparin, Nitro, Insulin, Cardizem)? @ -No Were any procedures done? @ -No Diagnosis/symptom? @ -Viral syndrome Acute, or Chronic, or Acute on Chronic? @ -Acute Uncomplicated (without systemic symptoms) or Complicated (systemic symptoms)? @ -Uncomplicated Side effects of treatment? @ -No Exacerbation, Progression, or Severe Exacerbation? @ -No Poses a threat to life or bodily function? How? (Chest pain, [place], [place], pneumonia, PE, COPD, DKA, ARF, appy, cholecystitis, CVA, Diverticulitis, Homicidal, Suicidal, threat to staff... and all critical care pts) @ -No - Lab Data Lab Results 06/03/24 Range/Units 11:18 Influenza Type A (PCR) Not Detected (Not Detectd) Influenza Type B (PCR) Not Detected (Not Detectd) RSV (PCR) Not Detected (Not Detectd) SARS-CoV-2 (PCR) Not Detected (Not Detectd) Disposition Clinical Impression: Viral syndrome Disposition: HOME SELF-CARE Condition: Good Instructions (If sedation given, give patient instructions): Viral Syndrome (ED) Additional Instructions: Please return to the Emergency Department if symptoms worsen or any other concerns. Is patient prescribed a controlled substance at d/c from ED?: No Referrals: Marge Mcelroy MD [Primary Care Provider] - 1-2 days Time of Disposition: 12:22
[2024-06-03] MEDS: methylPREDNISolone SOD SUCCI 125 MG/2 ML VIAL IM ONE (11:23)
--- NOTE | 2024-06-03 12:06 | XR ---
EXAMINATION TYPE: XR chest 2V DATE OF EXAM: 06/03/2024 11:55 AM COMPARISON: Chest radiographs from 02/01/2024 TECHNIQUE: XR chest 2V Frontal and lateral views of the chest. CLINICAL INDICATION:Male, 34 years old with history of VIRGILIO, productive cough; FINDINGS: Lungs/Pleura: There is no evidence of pleural effusion, focal consolidation, or pneumothorax. Pulmonary vascularity: Unremarkable. Heart/mediastinum: Cardiomediastinal silhouette is unremarkable. Musculoskeletal: No acute osseous pathology. IMPRESSION: No acute cardiopulmonary disease/process. No significant change from prior exam. [facility], , 06/03/2024 12:04 PM
[2024-06-03 12:17] LABS: Influenza A Not Detected (Not Detectd); Influenza B Not Detected (Not Detectd); RSV Not Detected (Not Detectd)
[2024-06-03] MEDS: IPRATROPIUM-ALBUTEROL 3 ML NEB INHALATION STA (12:31)
[2024-06-03 12:39] VITALS: BP 128/69; PULSE 70; RESP 17; TEMP 98.2
== END 2024-06-03 12:38 | disposition home or self-care (01) ==
LOC: EC 10:14
DX: B34.9 Viral infection, unspecified (principal); F17.200 Nicotine dependence, unspecified, uncomplicated
CPT/HCPCS: 94640; 87636; 71046; 99285; 96372; J2919

== ENCOUNTER 2024-06-05 08:24 | Emergency (ER) | payer OTHER ==
[2024-06-05 08:29] VITALS: BP 102/74; PULSE 95; RESP 16; TEMP 98.1
--- NOTE | 2024-06-05 08:40 | ED ---
Anxiety HPI - General Chief Complaint: Recheck/Abnormal Lab/Rx Stated Complaint: Medication refill Time Seen by Provider: 06/05/24 08:30 Source: patient, RN notes reviewed Mode of arrival: ambulatory - History of Present Illness Initial Comments: This is a 34-year-old male who presents to the emergency department for anxiety. Patient is requesting a dose of his Klonopin, 0.5 mg. States that he is due for a refill, however his PCP's office is closed on Fridays and he cannot reach them to have it sent in in time. He is subsequently requesting a one-time dose of his medication, he does not want a prescription. He was evaluated here yesterday for the same thing. Denies any suicidal or homicidal ideations, states that he just needs to get his anxiety under control. MD Complaint: anxiety - Related Data Home Medications: Previous Rx's Medication Instructions Recorded Nicotine 14Mg/24Hr Patch [Habitrol] 1 patch TRANSDERM DAILY 15 Days 10/22/22 #15 patch OLANZapine [ZyPREXA] 10 mg PO HS 30 Days #30 tab 10/22/22 OLANZapine [ZyPREXA] 10 mg PO HS 30 Days #30 tab 11/28/22 Azithromycin [Zithromax Z Pack] 0 tab PO DIRECTED #6 tab 07/01/23 predniSONE [Deltasone] 20 mg PO BID #6 tab 09/18/23 Pantoprazole [Protonix] 40 mg PO DAILY 14 Days #14 tab 10/25/23 Loratadine-Pseudoeph 10-240 mg 1 tab PO DAILY 30 Days #30 tab 11/07/23 [Claritin-D 24 Hour] Sertraline [Zoloft] 50 mg PO DAILY 30 Days #30 tab 11/10/23 clonazePAM [KlonoPIN] 0.5 mg PO TID PRN 3 Days #9 tablet 11/11/23 clonazePAM [KlonoPIN] 0.5 mg PO TID 3 Days #9 tablet 03/27/24 Allergies/Adverse Reactions: Allergies Allergy/AdvReac Type Severity Reaction Status Date / Time No Known Allergies Allergy Verified 06/03/24 11:05 Review of Systems ROS Statement: Those systems with pertinent positive or pertinent negative responses have been documented in the HPI. ROS Other: All systems not noted in ROS Statement are negative. Past Medical History Past Medical History: Asthma, Hypertension, Unable to Obtain Additional Past Medical History / Comment(s): glaucoma History of Any Multi-Drug Resistant Organisms: None Reported Past Surgical History: Orthopedic Surgery Past Psychological History: Anxiety, Depression, Panic Disorder, PTSD Smoking Status: Current every day smoker Past Alcohol Use History: None Reported, Occasional Past Drug Use History: None Reported General Exam Limitations: no limitations General appearance: anxious Head exam: Present: atraumatic, normocephalic, normal inspection Respiratory exam: Present: normal lung sounds bilaterally. Absent: respiratory distress, wheezes, rales, rhonchi, stridor Cardiovascular Exam: Present: regular rate, normal rhythm, normal heart sounds. Absent: systolic murmur, diastolic murmur, rubs, gallop, clicks Neurological exam: Present: alert, oriented X3, CN II-XII intact Psychiatric exam: Present: agitated, anxious Skin exam: Present: warm, dry, intact, normal color. Absent: rash Course Vital Signs 06/05/24 08:26 Temperature 98.1 F Pulse Rate 95 Respiratory 16 Rate Blood Pressure 102/74 O2 Sat by Pulse 100 Oximetry Medical Decision Making - Medical Decision Making This is a 34 year old male who presents to the emergency department for anxiety. Was pt. sent in by a medical professional or institution? @ -No Did you speak to anyone other than the patient for history? @ -No Did you review nursing and triage notes? @ -Yes, and I agree, it is accurate with regards to the patient's symptoms. Were old charts reviewed? @ -No Differential Diagnosis? @ -Differential Mental Health Depression, anxiety, bipolar, psychosis, schizophrenia, borderline personality, situational depression, adjustment disorder, behavioral disorder, brain tumor, malingering, substance abuse, encephalopathy, medication reaction, dementia, hypothyroidism, degenerative neurologic disorder, lupus.... This is not meant to be all-inclusive list EKG interpreted by me (3pts min.)? @ -Not obtained X-rays interpreted by me (1pt min.)? @ -Not obtained CT interpreted by me (1pt min.)? @ -Not obtained U/S interpreted by me (1pt. min.)? @ -Not obtained What testing was considered but not performed? (CT, X-rays, U/S, labs)? Why? @ -None What meds were considered but not given? Why? @ -None Did you discuss the management of the patient with other professionals? @ -No Did you reconcile home meds? @ -No Was smoking cessation discussed for >3mins.? @ -No Was critical care preformed (if so, how long)? @ -No Were there social determinants of health that impacted care today? How? (Homelessness, low income, unemployed, alcoholism, drug addiction, transportation, low edu. Level, literacy, decrease access to med. care, custodial, rehab)? @ -No Was there de-escalation of care discussed even if they declined? (Discuss DNR or withdrawal of care, Hospice)? @ -No What co-morbidities impacted this encounter? (DM, HTN, Smoking, COPD, CAD, Cancer, CVA, Hep., AIDS, mental health diagnosis, sleep apnea, morbid obesity)? @ -Anxiety Was patient admitted / discharged? @ -Discharged. Patient was given 1 dose of Klonopin, 0.5 mg. Patient states that because his PCP office closed on Thursday he has not been able to reach anyone over the weekend to get his prescription sent back in. Advised he needs to make sure he gets his refills sent in before the weekend to avoid this problem in the future. Also advised that he cannot continue coming to the emergency department just to receive a dose of anxiety medication. Patient expresses understanding and was discharged home in stable condition. Case discussed with ED attending Dr. Houston. Return precautions reviewed in depth, the patient is instructed to return to the emergency department with any new, worsening, or concerning symptoms. Patient verbalized understanding. Undiagnosed new problem with uncertain prognosis? @ -None Drug Therapy requiring intensive monitoring for toxicity (Heparin, Nitro, Insulin, Cardizem)? @ -None Were any procedures done? @ -None Diagnosis/symptom? @ -Anxiety Acute, or Chronic, or Acute on Chronic? @ -Acute on chronic Uncomplicated (without systemic symptoms) or Complicated (systemic symptoms)? @ -Uncomplicated Side effects of treatment? @ -None Exacerbation, Progression, or Severe Exacerbation] @ -Not applicable Poses a threat to life or bodily function? @ -No Disposition Clinical Impression: Anxiety Disposition: HOME SELF-CARE Additional Instructions: Return to the emergency department with any new, worsening, or concerning symptoms. Contact your primary care provider tomorrow morning for a refill on your medication. Is patient prescribed a controlled substance at d/c from ED?: No Referrals: Lwin,Hnin, MD [Primary Care Provider] - 1-2 days Time of Disposition: 08:40
[2024-06-05] MEDS: clonazePAM 0.5 MG TAB PO STA (08:42)
== END 2024-06-05 08:43 | disposition home or self-care (01) ==
LOC: EC 08:24
DX: F41.9 Anxiety disorder, unspecified (principal); Z76.0 Encounter for issue of repeat prescription; F17.200 Nicotine dependence, unspecified, uncomplicated
CPT/HCPCS: 99283

== ENCOUNTER 2024-06-06 09:18 | Emergency (ER) | payer OTHER ==
[2024-06-06 09:22] VITALS: BP 133/93; PULSE 108; RESP 18; TEMP 97.5
--- NOTE | 2024-06-06 09:38 | ED ---
General Adult HPI - General Chief complaint: Recheck/Abnormal Lab/Rx Stated complaint: Medication refill Time Seen by Provider: 06/06/24 09:22 Source: patient, RN notes reviewed Mode of arrival: ambulatory Limitations: no limitations - History of Present Illness Initial comments: 34-year-old male presents emerged department chief complaint of wanting Madelyn shannon. Patient has been here several days in a row for similar complaints. He states he getting his medication at 330 today. He denies any other associated symptoms. - Related Data Previous Rx's Medication Instructions Recorded Nicotine 14Mg/24Hr Patch [Habitrol] 1 patch TRANSDERM DAILY 15 Days 10/22/22 #15 patch OLANZapine [ZyPREXA] 10 mg PO HS 30 Days #30 tab 10/22/22 OLANZapine [ZyPREXA] 10 mg PO HS 30 Days #30 tab 11/28/22 Azithromycin [Zithromax Z Pack] 0 tab PO DIRECTED #6 tab 07/01/23 predniSONE [Deltasone] 20 mg PO BID #6 tab 09/18/23 Pantoprazole [Protonix] 40 mg PO DAILY 14 Days #14 tab 10/25/23 Loratadine-Pseudoeph 10-240 mg 1 tab PO DAILY 30 Days #30 tab 11/07/23 [Claritin-D 24 Hour] Sertraline [Zoloft] 50 mg PO DAILY 30 Days #30 tab 11/10/23 clonazePAM [KlonoPIN] 0.5 mg PO TID PRN 3 Days #9 tablet 11/11/23 clonazePAM [KlonoPIN] 0.5 mg PO TID 3 Days #9 tablet 03/27/24 Allergies Allergy/AdvReac Type Severity Reaction Status Date / Time No Known Allergies Allergy Verified 06/06/24 09:21 Review of Systems ROS Statement: Those systems with pertinent positive or pertinent negative responses have been documented in the HPI. ROS Other: All systems not noted in ROS Statement are negative. Past Medical History Past Medical History: Asthma, Hypertension, Unable to Obtain Additional Past Medical History / Comment(s): glaucoma History of Any Multi-Drug Resistant Organisms: None Reported Past Surgical History: Orthopedic Surgery Past Psychological History: Anxiety, Depression, Panic Disorder, PTSD Smoking Status: Current every day smoker Past Alcohol Use History: None Reported, Occasional Past Drug Use History: None Reported General Exam Limitations: no limitations General appearance: alert, in no apparent distress Head exam: Present: atraumatic, normocephalic, normal inspection Eye exam: Present: normal appearance, PERRL, EOMI. Absent: scleral icterus, conjunctival injection, periorbital swelling ENT exam: Present: normal exam, mucous membranes moist Neck exam: Present: normal inspection. Absent: tenderness, meningismus, lymphadenopathy Respiratory exam: Present: normal lung sounds bilaterally. Absent: respiratory distress, wheezes, rales, rhonchi, stridor Cardiovascular Exam: Present: regular rate, normal rhythm, normal heart sounds. Absent: systolic murmur, diastolic murmur, rubs, gallop, clicks Course Vital Signs 06/06/24 09:18 Temperature 97.5 F L Pulse Rate 108 H Respiratory 18 Rate Blood Pressure 133/93 O2 Sat by Pulse 98 Oximetry Medical Decision Making - Medical Decision Making Was pt. sent in by a medical professional or institution (MARK Royal, EMPLOYMENT APPEALS EXAMINER, urgent care, hospital, or jail...) When possible be specific @ -No Did you speak to anyone other than the patient for history (EMS, parent, family, police, friend...)? What history was obtained from this source @ -No Did you review nursing and triage notes (agree or disagree)? Why? @ -I reviewed and agree with nursing and triage notes Were old charts reviewed (outside hosp., previous admission, EMS record, old EKG, old radiological studies, urgent care reports/EKG's, jail records)? Report findings @ -No old charts were reviewed Differential Diagnosis (chest pain, altered mental status, abdominal pain women, abdominal pain men, vaginal bleeding, weakness, fever, dyspnea, syncope, headache, dizziness, GI bleed, back pain, seizure, CVA, palpatations, mental health, musculoskeletal)? @ -Anxiety, medication refill, drug-seeking behavior EKG interpreted by me (3pts min.). @ -None X-rays interpreted by me (1pt min.). @ -None done CT interpreted by me (1pt min.). @ -None done U/S interpreted by me (1pt. min.). @ -None done What testing was considered but not performed or refused? (CT, X-rays, U/S, labs)? Why? @ -None What meds were considered but not given or refused? Why? @ -None Did you discuss the management of the patient with other professionals (professionals i.e. Dr., PA, EMPLOYMENT APPEALS EXAMINER, lab, RT, psych nurse, social service manager, engineer first assistant, teacher, correctional security officer, patient case coordinator)? Give summary @ -No Was smoking cessation discussed for >3mins.? @ -No Was critical care preformed (if so, how long)? @ -No Were there social determinants of health that impacted care today? How? (Homelessness, low income, unemployed, alcoholism, drug addiction, transportation, low edu. Level, literacy, decrease access to med. care, long-term, rehab)? @ -No Was there de-escalation of care discussed even if they declined (Discuss DNR or withdrawal of care, Hospice)? DNR status @ -No What co-morbidities impacted this encounter? (DM, HTN, Smoking, COPD, CAD, Cancer, CVA, ARF, Chemo, Hep., AIDS, mental health diagnosis, sleep apnea, morbid obesity)? @ -None Was patient admitted / discharged? Hospital course, mention meds given and route, prescriptions, significant lab abnormalities, going to OR and other pertinent info. @ -Discharge patient advised that he has been here several days in a row and he told the provider yesterday that he would have his prescription today he is getting a prescription reportedly at 3:30 PM. Patient became very belligerent and angry and stormed out of the room Undiagnosed new problem with uncertain prognosis? @ -No Drug Therapy requiring intensive monitoring for toxicity (Heparin, Nitro, Insulin, Cardizem)? @ -No Were any procedures done? @ -No Diagnosis/symptom? @ -[Drug-seeking behavior Acute, or Chronic, or Acute on Chronic? @ -Acute Uncomplicated (without systemic symptoms) or Complicated (systemic symptoms)? @ -Uncomplicated Side effects of treatment? @ -No Exacerbation, Progression, or Severe Exacerbation? @ -No Poses a threat to life or bodily function? How? (Chest pain, [place], [place], pneumonia, PE, COPD, DKA, ARF, appy, cholecystitis, CVA, Diverticulitis, Homicidal, Suicidal, threat to staff... and all critical care pts) @ -No Disposition Clinical Impression: Drug-seeking behavior Disposition: HOME SELF-CARE Condition: Stable Additional Instructions: Please follow-up with your PCP today for a medication. Please return to the Emergency Department if symptoms worsen or any other concerns. Is patient prescribed a controlled substance at d/c from ED?: No Referrals: Marge Mcelroy MD [Primary Care Provider] - 1-2 days Time of Disposition: 09:38
== END 2024-06-06 10:02 | disposition home or self-care (01) ==
LOC: EC 09:18
DX: Z76.5 Malingerer [conscious simulation] (principal); F17.200 Nicotine dependence, unspecified, uncomplicated
CPT/HCPCS: 99282

== ENCOUNTER → 2024-07-20 | Outpatient (CLI) | payer OTHER | END | disposition home or self-care (01) | LOC: LABWHC1 15:44 | PROVIDERS: ATTEND Internal Medicine | DX: K90.0 Celiac disease (principal) | CPT/HCPCS: 36415; 82784; 83516; 86003 ==

== ENCOUNTER → 2024-07-28 | Outpatient (CLI) | payer OTHER | END | disposition home or self-care (01) | LOC: LABWHC1 14:49 | PROVIDERS: ATTEND Internal Medicine | DX: K90.0 Celiac disease (principal) | CPT/HCPCS: 36415; 83516; 86255 ==